=== PATIENT | female | born 1950 | race Caucasian/White ===

== ENCOUNTER → 2019-09-05 11:26 | Outpatient (CLI) | payer MEDICARE, SELFPAY ==
--- NOTE | ~2019-09-05 | MM_ITS ---
EXAMINATION: MM screening marla BI w mike HISTORY: Screening mammogram TECHNIQUE: Craniocaudal and mediolateral oblique 3-D tomosynthesis images were obtained and synthetic 2-D images were generated. CAD analysis was submitted and interpreted. COMPARISON: 06/22/2016, 07/19/2017, 08/08/2018 bilateral digital screening mammogram examinations BREAST PARENCHYMAL COMPOSITION: There are scattered areas of fibroglandular density. FINDINGS: Stable bilateral intramammary lymph nodes. Occasional benign calcifications. There is no ev idence of suspicious mass, calcification, or architectural distortion to suggest malignancy in either breast. There has been no suspicious interval change. IMPRESSION: 1. No mammographic evidence of malignancy. 2. Recommend routine screening mammography in one year. BI-RADS Category 2: Benign finding(s). Reviewed, dictated and finalized at location A.
== END ==
PROVIDERS: PCP Family Medicine; Visit Provider Family Medicine
DX: Z12.31 Encounter for screening mammogram for malignant neoplasm of breast (principal)
CPT/HCPCS: 77063; 77067

== ENCOUNTER 2020-03-01 00:41 | Outpatient (CLI) | payer MEDICARE, SELFPAY ==
[2020-03-01 18:12] LABS: SARS-CoV-2 RNA PCR Negative
== END 2020-03-01 00:42 | disposition home or self-care (01) ==
LOC: ANHCOVIDDT 00:41
PROVIDERS: PCP Family Medicine; Visit Provider Internal Medicine Gastroenterology
DX: Z01.812 Encounter for preprocedural laboratory examination (principal); Z20.828 Contact with and (suspected) exposure to other viral communicable diseases
CPT/HCPCS: 87635; C9803; U0003

== ENCOUNTER 2020-03-03 02:54 | Day surgery (SDC) | payer MEDICARE, SELFPAY ==
[2020-02-26 14:02] VITALS: BMI 26.9
--- NOTE | 2020-03-03 08:23 | WPDANESEPPF ---
Anes - Initial Pre Proc Eval Procedure: Operation Date: 03/03/20 12:00 Proposed Procedures p Screening Colonoscopy - Tree Castillo DO Date/Time: 03/03/20 08:23 Surgeon: Tree Castillo DO Pre Op Diagnosis: Neoplasm Screening Patient Data Age: 69 Gender: F Height: 1.7 m Weight: 78 kg Allergies Allergy/AdvReac Type Severity Reaction Status Date / Time aspirin Allergy Unknown Hives Verified 03/03/20 11:06 orphenadrine Allergy Unknown Rash Uncoded 03/03/20 11:06 Home Medications Medication Instructions Recorded Confirmed Type L. gasseri-B. bifidum-B longum 1.5 1 cap PO DAILY 04/21/19 03/03/20 History billion cell capsule acetaminophen 300 mg-codeine 30 mg 1 tablet PO Q12H PRN tablet 04/21/19 03/03/20 History tablet alendronate 70 mg tablet 70 mg PO WEEKLY #12 tablet 04/21/19 03/03/20 Rx glucosamine sulf dipotassium Cl 1 tablet PO DAILY 04/21/19 03/03/20 History 750 mg-chondroitin sulf 600 mg tablet meloxicam 15 mg tablet 15 mg PO DAILY 04/21/19 03/03/20 History multivitamin 1 tablet PO DAILY 04/21/19 03/03/20 History polyethylene glycol 3350 17 17 gm PO DAILY PRN 04/21/19 03/03/20 History gram/dose oral powder tizanidine 4 mg capsule 4 mg PO TID PRN 04/21/19 03/03/20 History escitalopram oxalate 10 mg tablet See Rx Instructions .ROUTE 01/29/20 03/03/20 Rx .COMPLEX #90 tablet metoprolol succinate 50 mg See Rx Instructions .ROUTE 01/29/20 03/03/20 Rx tablet,extended release 24 hr .COMPLEX #90 tablet amoxicillin 500 mg PO Q12H 02/26/20 03/03/20 History Patient hx anesthesia problems: none Family hx anesthesia problems: none PMFSH Social History Social History (Updated 01/27/20 @ 09:03 by Tanisha Paulino) Smoking status: Never smoker Second hand tobacco smoke exposure: No Alcohol intake: never Drinks per week: 1 Substance use: never Substance use type: does not use Living arrangements: alone Gender identity (if verbalized by the patient): Female Spiritual care concerns: No Anes - Eval Final PreProcedure Day of Procedure 03/03/20 08:23 Patient weight: overweight Heart: regular rate and rhythm Lungs: clear to auscultation and normal air movement Airway: Mallampati scale class II Neurological: alert and oriented Last oral intake: >/= 8 hours ASA classification: II Emergent: no Anesthetic plan: proceed Anesthesia type and monitoring: general GIVS and standard monitoring Informed Consent: The patient's anesthetic plan and its attendant risks and benefits were discussed with the patient/family/POA. Questions were solicited and answers provided to the satisfaction of the patient/family/POA.
[2020-03-03 11:06] VITALS: BP 135/77; PULSE 71; RESP 18; TEMP 36.9; O2SAT 97; BMI 26.9
[2020-03-03] MEDS: LACTATED RINGERS 1,000 ML 150 ML IV CONT (11:21)
--- NOTE | 2020-03-03 12:47 | PM.IMHP ---
H&P: [facility] History of Present Illness Date/Time: 03/03/20 12:47 Chief complaint: Neoplasm Screening Narrative: Reason for visit colonoscopy. This very pleasant lady's being evaluated at the request primary physician. Impression: Your very pleasantly that is here for colonoscopy. She is here for screening and surveillance. She has a history colon polyps. Chronic idiopathic constipation. HTN. HLD. DM. Anxiety /Depression. Osteoporosis. Recommendation: Colonoscopy. History: This very pleasant lady's being evaluated for screening and surveillance colonoscopy. She has a history of colon polyps. She does have history chronic idiopathic constipation and has been on Linzess and MiraLax. Now she no longer takes the Linzess as the MiraLax seems to be functioning by itself. She denies any hematochezia, melena or acholic stools. She is here for follow-up colonoscopy. Physical examination: General: very pleasant patient in no acute distress. HEENT: Head was normocephalic sclerae is clear mouth without masses neck was supple. Heart: Rate rhythm regular without S3 or S4. Lungs: CTA. Abdomen: Soft with no guarding or rigidity. Bowel sounds were active. Neurologic: Cranial nerves 2 through 12 intact. No focal defects. No clonus. Musculoskeletal system: Revealed no joint tenderness or swelling no muscle atrophy. Extremities: Reveal no significant edema. Skin: Warm and dry with normal turgor. Mental status: intact. Patient is alert and oriented. Review of Systems Review of Systems: All systems reviewed & are unremarkable except as noted in HPI and below [facility] Social History Social History (Updated 01/27/20 @ 09:03 by Tanisha Paulino) Smoking status: Never smoker Second hand tobacco smoke exposure: No Alcohol intake: never Drinks per week: 1 Substance use: never Substance use type: does not use Living arrangements: alone Gender identity (if verbalized by the patient): Female Spiritual care concerns: No Meds Home Medications and Allergies Home Medications Medication Instructions Recorded Confirmed Type L. gasseri-B. bifidum-B longum 1.5 1 cap PO DAILY 04/21/19 03/03/20 History billion cell capsule acetaminophen 300 mg-codeine 30 mg 1 tablet PO Q12H PRN tablet 04/21/19 03/03/20 History tablet alendronate 70 mg tablet 70 mg PO WEEKLY #12 tablet 04/21/19 03/03/20 Rx glucosamine sulf dipotassium Cl 1 tablet PO DAILY 04/21/19 03/03/20 History 750 mg-chondroitin sulf 600 mg tablet meloxicam 15 mg tablet 15 mg PO DAILY 04/21/19 03/03/20 History multivitamin 1 tablet PO DAILY 04/21/19 03/03/20 History polyethylene glycol 3350 17 17 gm PO DAILY PRN 04/21/19 03/03/20 History gram/dose oral powder tizanidine 4 mg capsule 4 mg PO TID PRN 04/21/19 03/03/20 History escitalopram oxalate 10 mg tablet See Rx Instructions .ROUTE 01/29/20 03/03/20 Rx .COMPLEX #90 tablet metoprolol succinate 50 mg See Rx Instructions .ROUTE 01/29/20 03/03/20 Rx tablet,extended release 24 hr .COMPLEX #90 tablet amoxicillin 500 mg PO Q12H 02/26/20 03/03/20 History Allergies Allergy/AdvReac Type Severity Reaction Status Date / Time aspirin Allergy Unknown Hives Verified 03/03/20 11:06 orphenadrine Allergy Unknown Rash Uncoded 03/03/20 11:06 Vital Signs Vital Signs - 24 hr 03/03/20 11:06 Temperature 36.9 C Pulse Rate 71 Respiratory Rate 18 Blood Pressure 135/77 Pulse Oximetry 97
[2020-03-03 13:19] VITALS: BP 100/49; PULSE 62; RESP 12; O2SAT 99
[2020-03-03 13:29] VITALS: BP 112/75; PULSE 74; RESP 14; O2SAT 100
[2020-03-03 13:39] VITALS: BP 128/78; PULSE 67; RESP 13; O2SAT 100
== END 2020-03-03 13:58 | disposition home or self-care (01) ==
PROVIDERS: PCP Family Medicine; Visit Provider Internal Medicine Gastroenterology
PROC: 0DJD8ZZ Inspection of Lower Intestinal Tract, Via Natural or Artificial Opening Endoscopic (ICD-10-PCS; CPT 45378; principal; 2020-03-03 12:00)
DX: Z12.11 Encounter for screening for malignant neoplasm of colon (principal); K63.5 Polyp of colon; K64.8 Other hemorrhoids; K59.00 Constipation, unspecified; I10 Essential (primary) hypertension; E78.5 Hyperlipidemia, unspecified; E11.9 Type 2 diabetes mellitus without complications; M81.0 Age-related osteoporosis without current pathological fracture; F41.8 Other specified anxiety disorders
CPT/HCPCS: 45385; J2704; J7120

== ENCOUNTER → 2020-09-21 13:30 | Outpatient (CLI) | payer MEDICARE, SELFPAY ==
--- NOTE | ~2020-09-21 | MM_ITS ---
EXAMINATION: MM screening marla BI w mike HISTORY: Screening mammogram TECHNIQUE: Craniocaudal and mediolateral oblique 3-D tomosynthesis images were obtained and synthetic 2-D images were generated. CAD analysis was submitted and interpreted. COMPARISON: 09/05/2019, 08/08/2018, 07/19/2017 bilateral digital screening mammogram examinations BREAST PARENCHYMAL COMPOSITION: There are scattered areas of fibroglandular density. FINDINGS: Occasional bilateral benign calcifications. Benign stable circumscribed opacities in the po sterior mid to upper left breast, most consistent with benign intramammary lymph nodes. There is no evidence of suspicious mass, calcification, or architectural distortion to suggest malig alysa in either breast. There has been no suspicious interval change. IMPRESSION: 1. No mammographic evidence of malignancy. 2. Recommend routine screening mammography in one year. BI-RADS Category 2: Benign finding(s). Reviewed, dictated and finalized at location A.
--- NOTE | ~2020-09-21 | DEXA_ITS ---
Bone Density Report Name: Senia Cano I Age: 70 Sex: Female Ethnicity: White Date of : 1950 Indication: monitoring treatment; height loss; postmenopausal Referring Provider: Sim Weiss Study: Bone densitometry was performed. Exam Date: September 21, 2020 Accession number: [id number] Bone Density: Region BMD T-score Z-score Classification AP Spine (L1, L4) 0.940 -0.9 1.2 Normal Femoral Neck (Left) 0.757 -0.8 0.9 Normal Total Hip (Left) 0.936 0.0 1.4 Normal Femoral Neck (Right) 0.735 -1.0 0.7 Normal Total Hip (Right) 0.886 -0.5 1.0 Normal Total Hip Mean 0.911 -0.3 1.2 Normal World Health Organization criteria for BMD impression classify patients as: Normal (T-score at or above -1.0), Osteopenia (T-score between -1.0 and -2.5), or Osteoporosis (T-score at or below -2.5). 10-year Fracture Risk: FRAX not reported because: All T-scores for Spine Total, Hip Total, Femoral Neck at or above -1.0 Treated for osteoporosis Previous Exams: Region Exam Age BMD T-score BMD Change BMD Change Date g/cm2 vs Baseline vs Previous AP Spine(L1, L4) 09/21/2020 70 0.940 -0.9 -0.076* -0.076* 05/10/2010 59 1.016 -0.2 Total Hip(Left) 09/21/2020 70 0.936 0.0 0.019 0.019 05/10/2010 59 0.917 -0.2 Total Hip(Right) 09/21/2020 70 0.886 -0.5 -0.040* -0.040* 05/10/2010 59 0.926 -0.1 *Denotes significance at 95% confidence level, LSC for AP Spine = 0.022 g/cm2, LSC for Total Hip = 0.027 g/cm2 Clinical Information Provided by Patient: Is being treated for osteoporosis Has used the following medications: Fosamax (i.e. alendronate) Patient maximum height was 67 Menopause Age: 57 Onset of menses at age 15 Number of children 2 Impression: The patient has normal bone mass. The BMD for the AP Spine(L1, L4) decreased, changing by -0.076 since the last DXA exam. The BMD for the Total Hip(Right) decreased, changing by -0.040 since the last DXA exam. Discussion: SIGNIFICANT BONE LOSS OBSERVED. Adherence to therapy (including calcium and vitamin D intake) should be assessed. If compliance is not a factor, review management and exclusion of secondary causes of bone loss. It is important to ask patients whether they are taking their medications and to encourage continued and appropriate compliance with their osteoporosis therapies to reduce fracture risk. It is also important to review their risk factors and enc
== END ==
PROVIDERS: PCP Family Medicine; Visit Provider Family Medicine
DX: Z12.31 Encounter for screening mammogram for malignant neoplasm of breast (principal); Z78.0 Asymptomatic menopausal state
CPT/HCPCS: 77063; 77067; 77080

== ENCOUNTER 2020-11-03 08:31 | Outpatient (CLI) | payer MEDICARE, SELFPAY ==
--- NOTE | 2020-11-03 11:00 | NEURO_ITS ---
Impression: # Complains of numbness of lower extremities below the knees. # Normal motor and sensory nerve conduction study with right peroneal response amplitude drop. # Needle/EMG exam with mild decreased motor unit potentials in right tibialis muscle. # Possibility of higher involvement needs to be ruled out. Nerve Conduction Studies Anti Sensory Summary Table Stim Site NR Peak (ms) P-T Amp (?V) Site1 Site2 Delta-P (ms) Dist (cm) Jose (m/s) Left Sup Fibular Anti Sensory (Ant Lat Mall) 14 cm 2.9 16.0 14 cm Ant Lat Mall 2.9 16.0 55 Right Sup Fibular Anti Sensory (Ant Lat Mall) 14 cm 3.3 3.9 14 cm Ant Lat Mall 3.3 16.0 48 Left Sural Anti Sensory (Lat Mall) Calf 3.1 19.2 Calf Lat Mall 3.1 16.0 52 Right Sural Anti Sensory (Lat Mall) Calf 3.4 14.5 Calf Lat Mall 3.4 16.0 47 Motor Summary Table Stim Site NR Onset (ms) O-P Amp (mV) Site1 Site2 Delta-0 (ms) Dist (cm) Jose (m/s) Left Peroneal Motor (Vastus Med) Ankle 4.1 2.4 Popit Ankle 9.1 42.0 46 Popit 13.2 2.1 Right Peroneal Motor (Vastus Med) Ankle 4.0 0.6 Popit Ankle 8.5 40.0 47 Popit 12.5 0.4 Left Tibial Motor (Abd Mcnair Brev) Ankle 4.5 4.7 Knee Ankle 10.1 43.0 43 Knee 14.6 1.5 Right Tibial Motor (Abd Mcnair Brev) Ankle 4.5 1.4 Knee Ankle 10.6 43.0 41 Knee 15.1 1.0 F Wave Studies NR F-Lat (ms) L-R F-Lat (ms) Left Peroneal (Mrkrs) (EDB) 52.27 0.69 Right Peroneal (Mrkrs) (EDB) 51.58 0.69 Left Tibial (Mrkrs) (Abd Hallucis) 51.53 1.40 Right Tibial (Mrkrs) (Abd Hallucis) 52.94 1.40 EMG Side Muscle Nerve Root Ins Act Fibs Amp Dur Recrt Comment Right AntTibialis Dp Br Fibular L4-5 Nml Nml Nml >12ms Reduced Right Gastroc Tibial S1-2 Nml Nml Nml Nml Nml Right Fibularis Long Sup Br Fibular L5-S1 Nml Nml Nml Nml Nml Right Flex Dig Long Tibial L5-S2 Nml Nml Nml Nml Nml Right Ext Dig Brev Dp Br Fibular L5, S1 Nml Nml Nml Nml Nml Left AntTibialis Dp Br Fibular L4-5 Nml Nml Nml Nml Nml Left Gastroc Tibial S1-2 Nml Nml Nml Nml Nml Left Fibularis Long Sup Br Fibular L5-S1 Nml Nml Nml Nml Nml Left Flex Dig Long Tibial L5-S2 Nml Nml Nml Nml Nml Left Ext Dig Brev Dp Br Fibular L5, S1 Nml Nml Nml Nml Nml Right QuadratusFem QuadFemoris L4-5, S1 Nml Nml Nml Nml Nml Left QuadratusFem QuadFemoris L4-5, S1 Nml Nml Nml Nml Nml MTDD
== END 2020-11-03 08:32 | disposition home or self-care (01) ==
LOC: ANHNEURO 08:32
PROVIDERS: PCP Family Medicine; Visit Provider Family Medicine
DX: R20.0 Anesthesia of skin (principal)
CPT/HCPCS: 95886; 95910

== ENCOUNTER → 2021-01-24 07:46 | Outpatient (CLI) | payer MEDICARE, SELFPAY ==
--- NOTE | ~2021-01-24 | MR_ITS ---
EXAMINATION: MR cervical spine wo/w con DATE: 01/24/2021 09:22 INDICATION: Bilateral arm and leg numbness and tingling. TECHNIQUE: Magnetic resonance imaging (MRI) of the cervical spine was performed without and with 15 m L MultiHance intravenous contrast. Sequences included sagittal and axial T2-weighted FSE, sagittal ST IR FSE, and sagittal and axial T1-weighted FSE. Postcontrast sequences included sagittal and axial T1 -weighted FS FSE. COMPARISON: None FINDINGS: There is 2 mm retrolisthesis of C4 on C5. Vertebral body heights are normal. There is sever araceli decreased disc height from C4-C5 through C6-C7. The spinal cord signal intensity is normal. The f ollowing disc levels are specifically discussed: C2-C3: The disc does not extend beyond the endplate margin. There is no uncovertebral joint osteoarth ritis. There is mild bilateral facet joint osteoarthritis. There is no neural foraminal stenosis. The re is no central canal stenosis. C3-C4: The disc is bulging. There is mild bilateral uncovertebral joint osteoarthritis. There is mode rate bilateral facet joint osteoarthritis. There is mild bilateral neural foraminal stenosis. There i s mild central canal stenosis. C4-C5: The disc is bulging. There is severe bilateral uncovertebral joint osteoarthritis. There is mi ld bilateral facet joint osteoarthritis. There is moderate bilateral neural foraminal stenosis. There is mild central canal stenosis. C5-C6: The disc is bulging. There is severe bilateral uncovertebral joint osteoarthritis. There is mi ld bilateral facet joint osteoarthritis. There is moderate right and mild left neural foraminal steno sis. There is mild central canal stenosis. C6-C7: The disc is bulging. There is severe bilateral uncovertebral joint osteoarthritis. There is mi ld bilateral facet joint osteoarthritis. There is mild bilateral neural foraminal stenosis. There is mild central canal stenosis. C7-T1: There is a central protrusion. There is no uncovertebral joint osteoarthritis. There is severe bilateral facet joint osteoarthritis. There is mild right neural foraminal stenosis. There is no reza tral canal stenosis. IMPRESSION: 1. Severe cervical spondylosis. Reviewed, dictated and finalized at location A.
--- NOTE | ~2021-01-24 | MR_ITS ---
EXAMINATION: MR brain/brain stem wo/w con EXAM DATE: 01/24/2021 09:35 INDICATION: Headaches, mainly left-sided numbness. Bilateral arm and leg tingling. Unsteady gait. TECHNIQUE: Magnetic resonance imaging (MRI) of the brain/brain stem obtained without contrast. Sagit marlee T1, axial diffusion, gradient echo (T2*), T1, T2, FLAIR sequences obtained. Patient was then inj ected with 15 cc intravenous Multihance contrast. Axial and coronal postcontrast T1 weighted sequence s obtained. There is no prior study for comparison. FINDINGS: There are no areas of restricted diffusion to suggest acute infarction. There is no acute hemorrhage seen on the T2*, a hemosiderin sensitive sequence. No intraparenchymal brain mass lesion. There is minimal periventricular and subcortical T2/FLAIR signal hyperintensity, nonspecific but pro bably related to small vessel ischemic disease (microangiopathy). There is mild prominence of the s ulci and ventricles related to cerebral atrophy. There are no extra-axial collections. Flow voids are seen in the cerebral arteries on the T2-weighted sequences consistent with their expected patency . The orbits are unremarkable. Soft tissue is unremarkable. IMPRESSION: 1. No acute intracranial findings. 2. Chronic age related findings. Reviewed, dictated and finalized at location B.
[2021-01-24 08:31] LABS: Estimated Glomerular Filt Rate > 60
== END ==
PROVIDERS: PCP Family Medicine; Visit Provider Psychiatry & Neurology Neurology
DX: R20.0 Anesthesia of skin (principal); M47.812 Spondylosis without myelopathy or radiculopathy, cervical region
CPT/HCPCS: 70553; 72156; A9577

== ENCOUNTER 2021-02-18 13:50 | Outpatient (CLI) | payer MEDICARE, SELFPAY ==
--- NOTE | ~2021-02-18 | US_ITS ---
EXAMINATION: US carotid duplex BI EXAM DATE: 02/18/2021 14:19 INDICATION: Weakness. TECHNIQUE: Grayscale, color and pulsed Doppler images of the cervical carotid arteries were obtained . The degree of vessel stenosis is placed in one of the following categories: normal, <50% stenosis, 50-69% stenosis, >=70% stenosis but less than near-occlusion, near-occlusion, or occlusion. Note that percent stenosis relative to normal distal artery lumen diameter is indirectly measured from velocit y measurements as described by Loc, et al. Radiology 2003; 229:340-346. There is no prior study fo r comparison. FINDINGS: RIGHT SIDE: Right common carotid artery peak systolic velocity (PSV in cm/s): 88 Right bulb/internal carotid artery peak systolic velocity (PSV in cm/s): 85 Right internal carotid artery end diastolic velocity (EDV in cm/s): 28 Right ICA/CCA peak systolic ratio: 1.0 Right external carotid artery peak systolic velocity (PSV in cm/s): 85 Right vertebral artery antegrade flow: yes There is minimal carotid bulb plaque. Velocity and Doppler waveforms in the common and internal carotid arteries is normal. LEFT SIDE: Left common carotid artery peak systolic velocity (PSV in cm/s): 96 Left bulb/internal carotid artery peak systolic velocity (PSV in cm/s): 85 Left internal carotid artery end diastolic velocity (EDV in cm/s): 26 Left ICA/CCA peak systolic ratio: 0.9 Left external carotid artery peak systolic velocity (PSV in cm/s): 89 Left vertebral artery antegrade flow: yes There is minimal carotid bulb plaque. Velocity and Doppler waveforms in the common and internal carotid arteries is normal. IMPRESSION: 1. Less than 50 percent stenosis in the right internal carotid artery. 2. Less than 50 percent stenosis in the left internal carotid artery. > Reviewed, dictated and finalized at location B.
== END 2021-02-18 13:51 | disposition home or self-care (01) ==
PROVIDERS: PCP Family Medicine; Visit Provider Family Medicine
DX: I65.23 Occlusion and stenosis of bilateral carotid arteries (principal); R53.1 Weakness
CPT/HCPCS: 93880

== ENCOUNTER → 2021-03-24 13:54 | Outpatient (CLI) | payer MEDICARE, SELFPAY ==
--- NOTE | ~2021-03-24 | MR_ITS ---
EXAMINATION: MR lumbar spine wo con DATE: 03/24/2021 14:49 INDICATION: Radiculopathy, lumbar region. TECHNIQUE: Magnetic resonance imaging (MRI) of the lumbar spine was performed without intravenous con trast. Sequences included sagittal T2-weighted FSE, sagittal T2-weighted FS FSE, sagittal T1-weighted FSE, and axial T2-weighted FSE. COMPARISON: Lumbar spine MRI 05/04/2017 FINDINGS: There is 15 degrees levoscoliosis of lumbar spine. There is 4 mm retrolisthesis of L3 on L4 . Vertebral body heights are normal. There is moderately decreased disc height at T10-T11, severely d ecreased disc height at T11-T12, mildly decreased disc height at L1-L2, and severely decreased disc h eight at L2-L3 and L3-L4. The distal spinal cord signal intensity is normal. The conus medullaris is at L1. There are peripelvic cysts in left kidney. The following disc levels are specifically discusse d: L1-L2: The disc is bulging. There is no facet joint osteoarthritis. There is mild bilateral neural fo raminal stenosis. There is mild central canal stenosis. L2-L3: The disc is bulging and has an annular fissure. There is mild bilateral facet joint osteoarthr itis. There is mild bilateral neural foraminal stenosis. There is mild central canal stenosis. L3-L4: The disc is bulging and has an annular fissure. There is mild right and moderate left facet carla int osteoarthritis. There is moderate bilateral neural foraminal stenosis. There is mild central chung l stenosis. There is severe stenosis of left lateral recess. L4-L5: The disc is bulging and has an annular fissure. There is mild left facet joint osteoarthritis. There is mild right and moderate left neural foraminal stenosis. There is mild central canal stenosi s. L5-S1: The disc does not extend beyond the endplate margin. There is severe bilateral facet joint ost eoarthritis. There is mild left neural foraminal stenosis. There is no central canal stenosis. IMPRESSION: 1. Severe lumbar spondylosis, stable from 05/04/2017. 2. Lumbar levoscoliosis. Reviewed, dictated and finalized at location A.
== END ==
PROVIDERS: PCP Family Medicine; Visit Provider Nurse Practitioner Adult Health
DX: M47.25 Other spondylosis with radiculopathy, thoracolumbar region (principal); M48.05 Spinal stenosis, thoracolumbar region; M47.27 Other spondylosis with radiculopathy, lumbosacral region; M48.07 Spinal stenosis, lumbosacral region; M41.9 Scoliosis, unspecified
CPT/HCPCS: 72148

== ENCOUNTER → 2021-09-22 14:12 | Outpatient (CLI) | payer MEDICARE, SELFPAY ==
--- NOTE | ~2021-09-22 | MM_ITS ---
EXAMINATION: MM screening marla BI w mike HISTORY: Screening TECHNIQUE: Craniocaudal and mediolateral oblique 3-D tomosynthesis images were obtained and synthetic 2-D images were generated. CAD analysis was submitted and interpreted. COMPARISON: Comparison to multiple prior studies sequentially, with oldest reviewed study dated 06/10. BREAST PARENCHYMAL COMPOSITION: Breast composed of scattered areas of fibroglandular density FINDINGS: There is no evidence of suspicious mass, calcification, or architectural distortion to sugg est malignancy in either breast. There has been no suspicious interval change. IMPRESSION: 1. No mammographic evidence of malignancy. 2. Recommend routine screening mammography in one year. BI-RADS Category 1: Negative Reviewed, dictated and finalized at location A.
== END ==
PROVIDERS: PCP Family Medicine; Visit Provider Family Medicine
DX: Z12.31 Encounter for screening mammogram for malignant neoplasm of breast (principal)
CPT/HCPCS: 77063; 77067

== ENCOUNTER → 2022-10-17 14:08 | Outpatient (CLI) | payer OTHER, SELFPAY ==
--- NOTE | ~2022-10-17 | MM_ITS ---
EXAMINATION: MM screening marla BI w mike HISTORY: Screening mammogram, family history of breast cancer in her sister. TECHNIQUE: Craniocaudal and mediolateral oblique 3-D tomosynthesis images were obtained and synthetic 2-D images were generated. CAD analysis was submitted and interpreted. COMPARISON: 09/22/2021, 09/21/2020, 09/05/2019 BREAST PARENCHYMAL COMPOSITION: The breasts are almost entirely fatty. FINDINGS: No suspicious mass, calcification, or architectural distortion are identified in either dann ast to suggest malignancy. There has been no suspicious interval change. IMPRESSION: 1. No mammographic evidence of malignancy. 2. Recommend routine screening mammography in one year. BI-RADS Category 1: Negative Reviewed, dictated and finalized at location A.
== END ==
PROVIDERS: PCP Family Medicine; Visit Provider Family Medicine
DX: Z12.31 Encounter for screening mammogram for malignant neoplasm of breast (principal)
CPT/HCPCS: 77063; 77067

== ENCOUNTER → 2022-11-02 11:00 | Outpatient (CLI) | payer MEDICARE, SELFPAY ==
--- NOTE | ~2022-11-02 | DEXA_ITS ---
Bone Density Report Name: HENRIETTA PRUITT I Age: 72 Sex: Female Ethnicity: White Date of : 1950 Indication: monitoring treatment; height loss; postmenopausal Referring Provider: Sim Weiss Study: Bone densitometry was performed. Exam Date: November 02, 2022 Accession number: [id number] Bone Density: Region BMD T-score Z-score Classification AP Spine (L1, L4) 0.963 -0.7 1.5 Normal Femoral Neck (Left) 0.736 -1.0 0.9 Normal Total Hip (Left) 0.908 -0.3 1.3 Normal Femoral Neck (Right) 0.762 -0.8 1.1 Normal Total Hip (Right) 0.918 -0.2 1.4 Normal Total Hip Mean 0.913 -0.3 1.4 Normal World Health Organization criteria for BMD impression classify patients as: Normal (T-score at or above -1.0), Osteopenia (T-score between -1.0 and -2.5), or Osteoporosis (T-score at or below -2.5). 10-year Fracture Risk: FRAX not reported because: All T-scores for Spine Total, Hip Total, Femoral Neck at or above -1.0 Treated for osteoporosis Previous Exams: Region Exam Age BMD T-score BMD Change BMD Change Date g/cm2 vs Baseline vs Previous AP Spine(L1, L4) 11/02/2022 72 0.963 -0.7 -0.053* 0.023* 09/21/2020 70 0.940 -0.9 -0.076* -0.076* 05/10/2010 59 1.016 -0.2 Total Hip(Left) 11/02/2022 72 0.908 -0.3 -0.009 -0.028* 09/21/2020 70 0.936 0.0 0.019 0.019 05/10/2010 59 0.917 -0.2 Total Hip(Right) 11/02/2022 72 0.918 -0.2 -0.008 0.032* 09/21/2020 70 0.886 -0.5 -0.040* -0.040* 05/10/2010 59 0.926 -0.1 *Denotes significance at 95% confidence level, LSC for AP Spine = 0.022 g/cm2, LSC for Total Hip = 0.027 g/cm2 Clinical Information Provided by Patient: Is being treated for osteoporosis Has used the following medications: Fosamax (i.e. alendronate), Vitamin D, Calcium Patient maximum height was 67 Menopause Age: 57 Drinks caffeinated beverages Onset of menses at age 15 Number of children 2 Impression: The patient has normal bone mass. The BMD for the Total Hip(Left) decreased, changing by -0.028 since the last DXA exam. Discussion: SIGNIFICANT BONE LOSS OBSERVED. Adherence to therapy (including calcium and vitamin D intake) should be assessed. If compliance is not a factor, review management and exclusion of secondary causes of bone loss. It is important to ask patients whether they are taking their medications and to encou
== END ==
PROVIDERS: PCP Family Medicine; Visit Provider Family Medicine
DX: Z78.0 Asymptomatic menopausal state (principal)
CPT/HCPCS: 77080

== ENCOUNTER 2023-04-02 09:11 | Outpatient (CLI) | payer MEDICARE, SELFPAY ==
--- NOTE | ~2023-04-02 | US_ITS ---
Abdominal Sonogram: Real-time sonographic imaging of the abdomen was performed. Clinical History: Abdominal pain Findings: The liver appears normal with no evidence of mass lesion or bile duct dilatation. Main por marlee vein demonstrates normal direction of flow. The spleen is normal in size without evidence of foca l lesion. The gallbladder is partially distended, and appears normal with no evidence of gallstone o r wall thickening. The common bile duct measures 3 mm. The visualized pancreas, aorta, and IVC are u nremarkable. The right kidney measures 11.3 cm in length and the left kidney measures 10.8 cm. Ther e is no hydronephrosis or renal calculus. Impression: Unremarkable abdominal ultrasound. Reviewed, dictated and finalized at location M. RGLASS AUTO BODY REPAIRER Impression: Unremarkable abdominal ultrasound.
== END 2023-04-02 09:12 | disposition home or self-care (01) ==
PROVIDERS: PCP Family Medicine; Visit Provider Family Medicine
DX: R10.9 Unspecified abdominal pain (principal)
CPT/HCPCS: 76700

== ENCOUNTER → 2023-04-18 07:45 | Outpatient (CLI) | payer MEDICARE, SELFPAY ==
--- NOTE | ~2023-04-18 | MR_ITS ---
EXAMINATION: MR lumbar spine wo con DATE: 04/18/2023 08:32 INDICATION: Lumbar radiculopathy with chronic low back pain and left hip and leg tingling TECHNIQUE: Magnetic resonance imaging (MRI) of the lumbar spine was performed without intravenous con trast. Sequences included sagittal T2-weighted FSE, sagittal fluid sensitive FSE STIR, sagittal T1-we ighted FSE, and axial T2-weighted FSE. COMPARISON: 03/24/2021 FINDINGS: Unchanged 15 degree lumbar levoscoliosis. No interval change in 4 mm retrolisthesis L3 on L4 and 2 mm retrolisthesis L2 on L3 and L4 on L5. There is also 5 mm right lateral listhesis of T12 on L1. Verte bral body heights are normal. Moderate left-sided predominant disc height loss at T11-T12, mild to mo derate disc height loss at L1-L2 and severe right-sided predominant disc height loss at L2-L3 and L3- L4. Disc desiccation without significant disc height loss at T12-L1 and L4-L5. There are associated f ibrofatty and fibrovascular degenerative endplate changes at L1-L2 through L3-L4. The conus medullari s terminates at L1-L2. There is normal signal in the caudal spinal cord. Consistent with parapelvic c ysts in both kidneys. Paravertebral soft tissues are unremarkable. The following disc levels are spec ifically discussed: T11-T12: Disc is bulging with annular fissure and superimposed left subarticular zone disc extrusion with disc material extending couple millimeters cephalad to the level of the inferior endplate of T11 . There is moderate bilateral facet osteoarthritis. There is mild bilateral neural foraminal stenosis . There is mild central canal stenosis and mild narrowing of the left lateral recess. T12-L1: Disc is mildly bulging. There is mild bilateral facet joint osteoarthritis. There is minimal right neural foraminal stenosis. There is mild central canal stenosis. L1-L2: Disc is bulging with annular fissure. There is mild bilateral facet joint osteoarthritis. Ther e is small amount of fluid between the slightly articular surfaces at the bilateral facet j oints suggesting the potential for up to 2 mm of anterolisthesis. There is mild bilateral neural fora hung stenosis. There is mild central canal stenosis along with mild narrowing of the right lateral r ecess. L2-L3: Disc is bulging with annular fissure. There is mild bilateral facet joint osteoarthritis. Ther e is mild bilateral neural foraminal stenosis. There is mild central canal stenosis with mild narrowi ng of the right lateral recess. L3-L4: Disc is bulging with annular fissure and broad-based disc extrusion extending from foraminal z one to foraminal zone with disc material extending up to 6 mm caudal to the level of the superior end plate of L4. There is mild right and moderate left facet joint osteoarthritis. There is moderate bila teral neural foraminal stenosis. There is mild to moderate central canal stenosis. There is narrowing of the lateral recesses, severe on the left and mild on the right. L4-L5: Disc is bulging with annular fissure. There is mild bilateral facet joint osteoarthritis. Ther e is mild to moderate right and moderate left neural foraminal stenosis. There is mild central canal stenosis and mild during the left lateral recess. L5-S1: The disc does not extend beyond the endplate margin. There is severe bilateral facet joint ost eoarthritis. There is mild bilateral neural foraminal stenosis. There is no central canal stenosis. IMPRESSION: 1. Unchanged 15 degrees lumbar levoscoliosis with slight progression of severe spondylosis. Reviewed, dictated and finalized at location A. CULTURAL RESEARCH TECHNICIAN
== END ==
PROVIDERS: PCP Family Medicine; Visit Provider Nurse Practitioner Family
DX: M47.26 Other spondylosis with radiculopathy, lumbar region (principal)
CPT/HCPCS: 72148

== ENCOUNTER 2023-12-17 14:06 | Outpatient (CLI) | payer MEDICARE, SELFPAY ==
--- NOTE | ~2023-12-17 | MM_ITS ---
EXAMINATION: MM screening marla BI w mike HISTORY: Screening TECHNIQUE: Craniocaudal and mediolateral oblique 3-D tomosynthesis images were obtained and synthetic 2-D images were generated. CAD analysis was submitted and interpreted. COMPARISON: No prior mammogram is available for comparison at this institution. BREAST PARENCHYMAL COMPOSITION: Not dense: There are scattered areas of fibroglandular density. FINDINGS: There is no evidence of suspicious mass, calcification, or architectural distortion to sugg est malignancy in either breast. There has been no suspicious interval change. IMPRESSION: 1. No mammographic evidence of malignancy. 2. Recommend routine screening mammography in one year. BI-RADS Category 1: Negative Reviewed, dictated and finalized at location B.
== END 2023-12-17 14:07 ==
LOC: MICIMG 14:07
PROVIDERS: PCP Obstetrics & Gynecology; Visit Provider Family Medicine
DX: Z12.31 Encounter for screening mammogram for malignant neoplasm of breast (principal)
CPT/HCPCS: 77063; 77067

== ENCOUNTER 2024-12-18 10:20 | Outpatient (CLI) | payer MEDICARE, SELFPAY ==
--- NOTE | ~2024-12-18 | MM_ITS ---
EXAMINATION: MM screening marla BI w mike HISTORY: Screening TECHNIQUE: Craniocaudal and mediolateral oblique 3-D tomosynthesis images were obtained and synthetic 2-D images were generated. CAD analysis was submitted and interpreted. COMPARISON: Comparison to multiple prior studies sequentially, with oldest reviewed study dated 09/04. BREAST PARENCHYMAL COMPOSITION: There are scattered areas of fibroglandular density. FINDINGS: There is no evidence of suspicious mass, calcification, or architectural distortion to sug gest malignancy in either breast. IMPRESSION: 1. No mammographic evidence of malignancy. 2. Recommend routine screening mammography in one year. BI-RADS Category 1: Negative Reviewed, dictated and finalized at location B.
--- NOTE | ~2024-12-18 | DEXA_ITS ---
Bone Density Report Name: HENRIETTA PRUITT I Age: 74 Sex: Female Ethnicity: White Date of : 1950 Indication: monitoring treatment; height loss; Referring Provider: BLAINE PAREDES Study: Bone densitometry was performed. Exam Date: December 18, 2024 Accession number: [id number] Bone Density: Region BMD T-score Z-score Classification AP Spine(L1, L4) 0.998 -0.4 2.0 Normal Femoral Neck (Left) 0.731 -1.1 0.9 Osteopenia Total Hip (Left) 0.904 -0.3 1.4 Normal Femoral Neck (Right) 0.712 -1.2 0.8 Osteopenia Total Hip (Right) 0.892 -0.4 1.3 Normal Total Hip Mean 0.898 -0.4 1.4 Normal World Health Organization criteria for BMD impression classify patients as: Normal (T-score at or above -1.0), Osteopenia (T-score between -1.0 and -2.5), or Osteoporosis (T-score at or below -2.5). 10-year Fracture Risk: FRAX not reported because: Treated for osteoporosis Previous Exams: -- Region Exam Age BMD T-score BMD Change BMD Change Date g/cm2 vs Baseline vs Previous -- AP Spine (L1,L4) 12/18/2024 74 0.998 -0.4 -1.8% 3.6%* 11/02/2022 72 0.963 -0.7 -5.2%* 2.4%* 09/21/2020 70 0.940 -0.9 -7.5%* -7.5%* 05/10/2010 59 1.016 -0.2 Total Hip(Left) 12/18/2024 74 0.904 -0.3 -1.4% -0.4% 11/02/2022 72 0.908 -0.3 -1.0% -3.0%* 09/21/2020 70 0.936 0.0 2.1% 2.1% 05/10/2010 59 0.917 -0.2 Total Hip(Right) 12/18/2024 74 0.892 -0.4 -3.7%* -2.8% 11/02/2022 72 0.918 -0.2 -0.9% 3.6%* 09/21/2020 70 0.886 -0.5 -4.3%* -4.3%* 05/10/2010 59 0.926 -0.1 -- *Denotes significance at 95% confidence level, LSC for AP Spine = 0.022 g/cm2, LSC for Total Hip = 0.027 g/cm2 Clinical Information Provided by Patient: Is being treated for osteoporosis Has used the following medications: Fosamax (i.e. alendronate), Vitamin D, Calcium Patient maximum height was 67 Menopause Age: 57 Onset of menses at age 15 Number of children 2 Impression: The patient has low bone mass, based on the Right Femoral Neck T-score. No significant bone loss was observed. Discussion: PATIENT UNDER TREATMENT WITH NO SIGNIFICANT BMD LOSS SINCE LAST EXAM. In an untreated patient, BMD typically declines with age. A lack of decline or gain is usually a sign that treatment is efficacious and fracture risk is reduced. It is important to ask patients whether they are taking their medications and to encourage continued and appropriate compliance with their osteoporosis therapies to reduce fracture risk. It is also important to review their risk factors and encourage appropriate calcium and vitamin D intakes, exercise, fall prevention and other lifestyle measures. Follow-Up: Consider a repeat BMD and Vertebral Fracture Assessment (VFA) exam in 2 years or sooner if medically necessary, to reassess this patient's status. Reported by: BOBBY on 12/18/2024 11:28:00 AM. Reviewed, dictated and finalized at location A.
== END 2024-12-18 10:21 | disposition home or self-care (01) ==
PROVIDERS: PCP Family Medicine; Visit Provider Family Medicine
DX: Z12.31 Encounter for screening mammogram for malignant neoplasm of breast (principal); M85.88 Other specified disorders of bone density and structure, other site; Z78.0 Asymptomatic menopausal state
CPT/HCPCS: 77063; 77067; 77080

== ENCOUNTER 2025-03-19 15:51 | Emergency (ER) | payer MEDICARE, SELFPAY ==
--- OUTSIDE RECORDS SUMMARY | 2023-12-31 04:30 | XMS_ITS ---
Author Organization [facility] Address [address] [place], [place] [id number] Care Team Providers Care Aircraft Engine Installer Name Role Phone EVON EVANS Unavailable [phone] Sim Weiss Unavailable Unavailable Allergies Allergen (clinical drug ingredient) Drug/Non Drug Allergy documented on EMR Reaction Allergy Type Onset Date Status aspirin Aspirin Unknown Drug Allergy 06/12/2012 active orphenadrine Orphenadrine Unknown Drug Allergy 06/19/2022 active REASON FOR VISIT Patient presents for at-risk foot care . The patient has painful toenails and calluses that are causing difficulty with ambulation and shoegear. The onset is gradual. The patient has diabetes mellitus Medications Medication SIG (Take, Route, Frequency, Duration) Notes Start Date End Date Status acetaminophen 325 MG / oxycodone hydrochloride 5 MG Oral Tablet [Percocet] ORAL acetaminophen 325 MG / oxycodone hydrochloride 5 MG Oral Tablet [Percocet]Original Medicationacetaminophen 325 MG / oxycodone hydrochloride 5 MG Oral Tablet [Percocet] *Reorder from [facility] for eRx and Interac 8 Active terbinafine 250 MG Oral Tablet ORAL terbinafine 250 MG Oral TabletOriginal Medicationterbinafine 250 MG Oral Tablet *Reorder from [facility] for eRx and Interaction Alerts* 4 Active Vital Signs Weight 128 lbs 12/31/2023 Weight-kg 58.06 kg 12/31/2023 Encounters Encounter Location Date Provider Diagnosis [facility] [place] [address] [place] [id number] 12/31/2023 EVON KHANLORNE Tinea unguium B35.1 ; Type 2 diabetes mellitus with other circulatory complications E11.59 ; Pain in right toe(s) M79.674 ; Pain in left toe(s) M79.675 and Acquired keratosis [keratoderma] palmaris et plantaris L85.1 Assessments Encounter Date Diagnosis (ICD Code) Assessment Notes Treatment Notes Treatment Clinical Notes Section Notes 12/31/2023 Tinea unguium (ICD-10 - B35.1) Nails 1-5 Bilateral were debrided extensively with nail nippers and emery board, reducing length and girth to pink healthy tissue with any subungual debris and necrotic tissue removed 12/31/2023 Type 2 diabetes mellitus with other circulatory complications (ICD-10 - E11.59) 12/31/2023 Pain in right toe(s) (ICD-10 - M79.674) 12/31/2023 Pain in left toe(s) (ICD-10 - M79.675) 12/31/2023 Acquired keratosis [keratoderma] palmaris et plantaris (ICD-10 - L85.1) A total of 2 corns or calluses, as described in the note above, were cut and pared utilizing a #15 blade Plan Of Treatment Treatment Notes Assessment Notes Tinea unguium Nails 1-5 Bilateral were debrided extensively with nail nippers and emery board, reducing length and girth to pink healthy tissue with any subungual debris and necrotic tissue removed Acquired keratosis [keratode rma] palmaris et plantaris A total of 2 corns or calluses, as described in the note above, were cut and pared utilizing a #15 blade Next Appt Details Follow Up: 10 - 12 weeks, Re ason: At-Risk Foot care, sooner if problems develop. Provider Name:EVON EVANS, 09:00:00 AM, [address], [facility], [place], [place], [id number], Progress Notes * HENRIETTA PRUITT IDOB: [birth year] (74 yo F)Acc No.[id number]:12/31/2023 Patient: HENRIETTA HINKLE I Provider: Janie Evans DPM :1950 A ge:73 Y S ex:Female Date:12/31/2023 [address] [id number] Subjective: * Chief Complaints: * 1 . Patient presents for at-risk foot care . The patient has painful toenails and calluses that are causing difficulty with ambulation and shoegear. The onset is gradual. The patient has diabetes mellitus. * HPI: H PI: General care P joan presents to the office for diabetic foot care. Patient states that their nails are thickened, elongated and painful. Patient states that it is aggravated by shoe gear. Onset is gradual., Patient denies taking blood thinners., Date last seen by Dr. Weiss was 10/2023., Initials mca. * ROS: G eneral / Constitutional: Patient denies c hills, fever, weight loss. ? M usculoskeletal: Patient denies w eakness, broken foot bone. ? P eripheral Vascular: Patient denies u lceration of feet. S kin: Patient complains of f ungal nails, nail changes, calluses and corns. N eurologic: Patient denies b alance difficulty, confusion, difficulty speaking, dizziness. P atient complains of b urning/ tingling. * Medical History: M edical History Verified. * Family History: F ather: PRN - Father: :: Hypertension,,known absent , :: Diabetes,,known absent . M other: PRN - Mother: :: Cancer,,known absent . S ister: SIB - Sister: . * Social History: M igrated Social History: M igrated Social History: History of tobacco use : , Smoking Status : Never used tobacco , Alcohol intake :. * Medications: T aking acetaminophen 325 MG / oxycodone hydrochloride 5 MG Oral Tablet [Percocet] ORAL , Notes to Pharmacist: acetaminophen 325 MG / oxycodone hydrochloride 5 MG Oral Tablet [Percocet]Original Medicationacetaminophen 325 MG / oxycodone hydrochloride 5 MG Oral Tablet [Percocet] *Reorder from [facility] for eRx and Interac, Taking terbinafine 250 MG Oral Tablet ORAL , Notes to Pharmacist: terbinafine 250 MG Oral TabletOriginal Medicationterbinafine 250 MG Oral Tablet *Reorder from [facility] for eRx and Interaction Alerts*, Medication List reviewed and reconciled with the patient * Allergies: A spirin: Allergy - Onset Date 06/12/2012, Orphenadrine: Allergy - Onset Date 06/19/2022. Objective: * Vitals: W t:128lbs, Wt-k.06 kg. * Examination: C onstitutional: Constitutional T he patient is awake, alert, well developed, well groomed and well nourished. D ermatologic: Skin findings: S kin is thin, atrophic and lacking pedal hair. Hypertrophic / hyperkeratotic lesion: d orsal aspect of the right 5th digit, dorsal aspect of right 1st metatarsal head. Nail pathology: N ails 1-5 bilateral are elongated, thick, discolored, and dystrophic with subungual debris. They are painful to palpation. ? V ascular: Dorsalis pedis pulse: 0 /4, bilateral. Posterior tibial pulse: 1 /4, bilaterally. Capillary refill: g reater than 3 seconds. Edema: N o edema, bilateral. N eurologic: Gross sensation G ross sensation is intact to light touch.? Paresthesias to the digits bilateral. M usculoskeletal: Muscle Strength M uscle strength is 5/5 in regards to dorsiflexion, plantarflexion, inversion, and eversion in bilateral lower extremities. ? Assessment: * Assessment: 1. T inea unguium - B35.1 (Primary) 2 . T ype 2 diabetes mellitus with other circulatory complications - E11.59 3 . P ain in right toe(s) - M79.674 ? 4 . P ain in left toe(s) - M79.675 5 . A cquired keratosis [keratoderma] palmaris et plantaris - L85.1 Plan: * Treatment: 2. A cquired keratosis [keratoderma] palmaris et plantaris Notes: A total of 2 corns or calluses, as described in the note above, were cut and pared utilizing a #15 blade * Immunizations: Immunization record has been reviewed and updated. * Follow Up: 1 0 - 12 weeks (Reason: At-Risk Foot care, sooner if problems develop.) * Billing Information: * Visit Code: 45652 Office Visit, Est Pt., Level 3. * Procedure Codes: * Electronic signature of EVON EVANS DPM on 03/19/2025 at 04:40 PM CDT Sign off status: Pending * Provider: Janie Evans DPM Date: 0 12/31/2023 Generated for Katya nation/Anitha/eTransmitting on: 1 04:40 PM CDT History and Physical Notes * HPI (History of Present Illness) Category Sub-Category Detail Notes Category Not es HPI General care Patient presents to the office for diabetic foot care. Patient states that their nails are thickened, elongated and painful. Patient states that it is aggravated by shoe gear. Onset is gradual., Patient denies taking blood thinners., Date last seen by Dr. Weiss was 10/2023., Initials mca Examination Category Sub-Category Detail Notes Category Not es Dermatologic Skin findings: Skin is thin, at rophic and lacking pedal hair Nail pathology: Nails 1-5 bilateral are elongated, thick, discolored, and dystrophic with subungual debris. They are painful to palpation Hypertrophic / hyperkeratotic lesion: do rsal aspect of the right 5th digit, dorsal aspect of right 1st metatarsal head Neurologic Gross sensation Gross sensation is intact to light touch. Paresthesias to the digits bilateral Vascular Dorsalis pedis pulse: 0/4, bilateral Edema: No edema, bilateral Capillary refill: greater than 3 secon ds Posterior tibial pulse: 1/4, bilaterally Musculoskeletal Muscle Strength Muscle strength is 5/5 in regards to dorsiflexion, plantarflexion, inversion, and eversion in bilateral lower extremities Constitutional Constitutional The patient is a wake, alert, well developed, well groomed and well nourished
--- OUTSIDE RECORDS SUMMARY | 2024-12-22 05:30 | XMS_ITS ---
Author Organization [facility] Address [address] [place], [place] [id number] Care Team Providers Care Global Logistics Analyst Name Role Phone EVON EVANS Unavailable [phone] Sim Weiss Unavailable Unavailable REASON FOR VISIT *General care Encounters Encounter Location Date Provider Diagnosis [facility] [place] [address] [place], [place] [id number] 12/22/2024 EVON EVANS Plan Of Treatment Next Appt Details Provider Name:EVON EVANS, 09:00:00 AM, [address], [place], [place], [id number], Progress Notes * HENRIETTA PRUITT IDOB: [birth year] (74 yo F)Acc No.[id number]:12/22/2024 Patient: HENRIETTA HINKLE I Provider: Janie Evans DPM :1950 A ge:74 Y S ex:Female Date:12/22/2024 Address:[address], [place] [id number] Subjective: * Chief Complaints: * 1 . *General care. * Medical History: Objective: * Vitals: Assessment: Plan: * Treatment: * Billing Information: * Visit Code: * Procedure Codes: * Electronic signature of EVON EVANS DPM on 03/19/2025 at 04:41 PM CDT Sign off status: Pending * Provider: Janie Evans DPM Date: 0 12/22/2024 Generated for Katya nation/Karla on: 1 04:41 PM CDT
--- OUTSIDE RECORDS SUMMARY | 2025-01-05 04:00 | XMS_ITS ---
Author Organization [facility] Address [address] [place], [place] [id number] Care Team Providers Care Cordage Sales Representative Name Role Phone EVON EVANS Unavailable [phone] Sim Weiss Unavailable Unavailable Allergies Allergen (clinical drug ingredient) Drug/Non Drug Allergy documented on EMR Reaction Allergy Type Onset Date Status aspirin Aspirin Unknown Drug Allergy 06/12/2012 active orphenadrine Orphenadrine Unknown Drug Allergy 06/19/2022 active REASON FOR VISIT Patient presents for at-risk foot care . The patient has painful toenails and calluses that are causing difficulty with ambulation and shoegear. The onset is gradual Medications Medication SIG (Take, Route, Frequency, Duration) Notes Start Date End Date Status acetaminophen 325 MG / oxycodone hydrochloride 5 MG Oral Tablet [Percocet] ORAL acetaminophen 325 MG / oxycodone hydrochloride 5 MG Oral Tablet [Percocet]Original Medicationacetaminophen 325 MG / oxycodone hydrochloride 5 MG Oral Tablet [Percocet] *Reorder from [facility] for eRx and [facility] 8 Active terbinafine 250 MG Oral Tablet ORAL terbinafine 250 MG Oral TabletOriginal Medicationterbinafine 250 MG Oral Tablet *Reorder from [facility] for eRx and Interaction Alerts* 4 Active Vital Signs Weight 128 lbs 01/05/2025 Weight-kg 58.06 kg 01/05/2025 Height 65.0 in 01/05/2025 Height-cm 165.1 cm 01/05/2025 BMI 21.3 kg/m2 01/05/2025 Encounters Encounter Location Date Provider Diagnosis [facility] [address] [place], [place] [id number] 01/05/2025 EVON EVANS Tinea unguium B35.1 ; Type 2 diabetes mellitus with other circulatory complications E11.59 ; Pain in right toe(s) M79.674 ; Pain in left toe(s) M79.675 and Acquired keratosis [keratoderma] palmaris et plantaris L85.1 Assessments Encounter Date Diagnosis (ICD Code) Assessment Notes Treatment Notes Treatment Clinical Notes Section Notes 01/05/2025 Tinea unguium (ICD-10 - B35.1) Nails 1-5 Bilateral were debrided extensively with nail nippers and emery board, reducing length and girth to pink healthy tissue with any subungual debris and necrotic tissue removed 01/05/2025 Type 2 diabetes mellitus with other circulatory complications (ICD-10 - E11.59) 01/05/2025 Pain in right toe(s) (ICD-10 - M79.674) 01/05/2025 Pain in left toe(s) (ICD-10 - M79.675) 01/05/2025 Acquired keratosis [keratoderma] palmaris et plantaris (ICD-10 [...] problems develop. Provider Name:EVON EVANS, 09:00:00 AM, [address], [place], [place], [id number], Progress Notes * HENRIETTA PRUITT IDOB: [birth year] (74 yo F)Acc No.[id number]:01/05/2025 Patient: HENRIETTA HINKLE I Provider: Janie Evans DPM :1950 A ge:74 Y S ex:Female Date:01/05/2025 Address:[address] [id number] Subjective: * Chief Complaints: * 1 . Patient presents for at-risk foot care . The patient has painful toenails and calluses that are causing difficulty with ambulation and shoegear. The onset is gradual. * HPI: H PI: General care P atient presents to the office for diabetic foot care. Patient states that their nails are thickened, elongated and painful. Patient states that it is aggravated by shoe gear. Onset is gradual., Patient denies taking blood thinners., Date last seen by Dr. Weiss was 08/2024., Initials [facility]. * ROS: G eneral / Constitutional: Patient [...] of b urning/ tingling. * Medical History: * Family History: F ather: PRN - [...] 5 MG Oral Tablet [Percocet] *Reorder from [facility] for eRx and [facility], Taking terbinafine 250 MG Oral Tablet ORAL , Notes to Pharmacist: terbinafine 250 MG Oral TabletOriginal Medicationterbinafine 250 MG Oral Tablet *Reorder from [facility] for eRx and Interaction Alerts*, Medication List reviewed and reconciled with the patient * Allergies: A spirin: Allergy - Onset Date 06/12/2012, Orphenadrine: Allergy - Onset Date 06/19/2022. Objective: * Vitals: S hoe Size: 7.5, Wt:128lbs, Wt-k.06 kg, Ht: 65.0 in, Ht-cm: 165.1 cm, BMI:21.3Index, Body Surface Area: 1.63. * Examination: C onstitutional: Constitutional T he patient is awake, alert, well developed, well groomed and well nourished. D ermatologic: Skin findings: S kin is thin, atrophic and lacking pedal hair. Hypertrophic / hyperkeratotic lesion: m edial aspect of the right 2nd digit. Nail pathology: N ails 1-5 bilateral are [...] inversion, and eversion in bilateral lower extremities. Hammertoes D orsally contracted digits 2nd digit right foot. The deformity is flexible and reducible. Hallux Abducto Valgus L aterally deviated hallux with medial prominence of the 1st metatarsal head right foot.. Assessment: * Assessment: 1. T inea unguium [...] record has been reviewed and updated. * Preventive Medicine: Screenings: F all risk screening F all Risk Assessment: N o falls in the past year. * Follow Up: 1 0 - 12 weeks (Reason: At-Risk Foot care, sooner if problems develop.) * Billing Information: * Visit Code: 27673 Office Visit, Est Pt., Level 3. * Procedure Codes: * Electronic signature of EVON EVANS DPM on 03/19/2025 at 04:41 PM CDT Sign off status: Pending * Provider: Janie Evans DPM Date: 0 01/05/2025 Generated for Katya nation/Anitha/Sarinaitting on: 1 04:41 PM CDT History and Physical Notes * [...] Date last seen by Dr. Weiss was 08/2024., Initials [facility] Examination Category Sub-Category Detail Notes Category Not es Dermatologic Skin findings: Skin is thin, at rophic and lacking pedal hair Nail pathology: Nails 1-5 bilateral are elongated, thick, discolored, and dystrophic with subungual debris. They are painful to palpation Hypertrophic / hyperkeratotic lesion: me dial aspect of the right 2nd digit Neurologic Gross sensation Gross sensation is intact to light touch. Paresthesias to the digits bilateral Vascular Dorsalis pedis pulse: 0/4, bilateral Edema: No edema, bilateral Capillary refill: greater than 3 secon ds Posterior tibial pulse: 1/4, bilaterally Musculoskeletal Muscle Strength Muscle strength is 5/5 in regards to dorsiflexion, plantarflexion, inversion, and eversion in bilateral lower extremities Hammertoes Dorsally contracted digits 2nd digit right foot. The deformity is flexible and reducible Hallux Abducto Valgus Laterally deviated hallux with medial prominence of the 1st metatarsal head right foot. Constitutional Constitutional The patient is a wake, alert, well developed, well groomed and well nourished
--- NOTE | ~2025-03-19 | CT_ITS ---
EXAMINATION: CT abdomen pelvis w con DATE: 03/19/2025 16:32 INDICATION: Mid abdominal pain TECHNIQUE: Computed tomography (CT) of the abdomen and pelvis was performed with 100 mL Omnipaque-350 intravenous contrast. Automated exposure control and iterative reconstruction technique were employed. The dose-length product was 428.19 mGy-cm. COMPARISON: None FINDINGS: Mild discoid atelectasis at the lingula and left lower lobe. Cardia megaly. No pericardial or pleural effusion. Small sliding-type hiatal hernia. There are couple subcentimeter hepatic cyst. Gallbladder, spleen, pancreas and bilateral adrenal glands are normal. There is small region of cortical scarring at the upper pole of the right kidney. 8 mm cyst at the upper pole the right kidney. 3 mm nonobstructing stone at a lower pole calyx of the left kidney. Mild right- sided and mild to moderate left-sided hydronephrosis with transition points at the ureteral pelvic junction without evident obstructing stones or masses. Bladder, anteverted uterus and bilateral adnexa are unremarkable. There is fluid scattered throughout the small bowel without tania dilation or discrete transition point to suggest obstruction. Colon and appendix are normal. Small amount of ascites in the deep pelvis. No abscess or free intraperitoneal gas. No pathologically enlarged abdominal or pelvic lymphadenopathy. There are couple fat-containing supraumbilical ventral hernias. Mild S-shaped curvature of the lumbar spine with severe spondylosis. IMPRESSION: 1. Nonspecific fluid throughout nondilated small bowel which could be seen in the setting of an enteritis. 2. Small amount of scattered ascites in the abdomen and pelvis. 3. 3 mm nonobstructing stone at the lower pole the left kidney with mild right- sided and moderate left-sided hydronephrosis with transition points at the ureteropelvic junctions which are without obstructing stones or masses. 4. Small sliding-type hiatal hernia. 5. Cardiomegaly. Reviewed, dictated and finalized at location A. IMPRESSION: 1. Nonspecific fluid throughout nondilated small bowel which could be seen in t he setting of an enteritis. 2. Small amount of scattered ascites in the abdomen and pelvis. 3. 3 mm nonobstructing stone at the lower pole the left kidney with mild right- sided and moderate left-sided hydronephrosis with transition points at the uret eropelvic junctions which are without obstructing stones or masses. 4. Small sliding-type hiatal hernia. 5. Cardiomegaly.
[2025-03-19 15:54] VITALS: BP 156/88; PULSE 79; RESP 18; TEMP 36.4; O2SAT 99
--- NOTE | 2025-03-19 15:57 | ECG_ITS ---
Test Date: 2025-03-19 16:06:53 Measurements Intervals Whitman Rate: 70 P: 31 KS: 183 QRS: 5 QRSD: 86 T: 30 QT: 442 QTc: 480 Interpretive Statements SINUS RHYTHM WITH OCCASIONAL SUPRAVENTRICULAR PREMATURE COMPLEXES MINIMAL Q WAVES- HIGH LATERAL LEADS BASELINE ARTIFACT- I, II, III, AVR, AVL, AVF, V5 BORDERLINE ECG No previous ECG available for comparison Electronically Signed On 03-19-2025 16:11:48 CDT by Jacky Todd D.O.
[2025-03-19] MEDS: SODIUM CHLORIDE 0.9% IV 1,000 ML 999 ML IV CONT (16:07)
[2025-03-19] MEDS: ONDANSETRON INJ 4 MG/2 ML VIAL IV PUSH ×2 (16:09→17:51)
[2025-03-19 16:24] LABS: Hematocrit 44.2 % (37.0-47.0); Hemoglobin 14.9 g/dL (12.0-15.0); Immature Granulocyte Percent A 0.3 % (0-0.5); Lymphocytes Absolute Auto 0.49 K/mm3 (0.9-3.2); Mean Corpuscular HGB Conc 33.7 g/dl (32-36); Mean Corpuscular Hemoglobin 31.7 pg (26-34); Mean Corpuscular Volume 94.0 fl (80-100); Nucleated Red Blood Cells Absolute Auto 0.000 K/mm3 (0.0-0.012); Nucleated Red Blood Cells Perc 0.0 % (0.0-0.2); Platelet Count Result 273 k/mm3 (150-375); Red Blood Count 4.70 M/mm3 (4.2-5.4); White Blood Count 11.6 K/mm3 (4.5-10.0)
[2025-03-19 16:26] LABS: Estimated CRCL calculation 75 ml/min; Estimated Glomerular Filt Rate > 60
[2025-03-19 16:35] LABS: Alanine Aminotransferase 37 U/L (6-35); Albumin Level 4.6 g/dL (3.5-5.1); Alkaline Phosphatase 80 U/L (38-126); Anion Gap 10 mmol/L (4-12); Aspartate Amino Transferase 47 U/L (14-36); Bilirubin,Total 0.9 mg/dL (0.2-1.3); Blood Urea Nitrogen 21 mg/dL (7-17); Calcium 10.6 mg/dL (8.4-10.2); Carbon Dioxide 25 mmol/L (22-30); Chloride 103 mmol/L (98-107); Estimated CRCL calculation 65 ml/min; Estimated Glomerular Filt Rate > 60; Glucose 145 mg/dL (65-110); Lipase 40 U/L (23-300); Potassium 4.5 mmol/L (3.4-5.0); Sodium 138 mmol/L (137-145); Total Protein 7.6 g/dL (6.3-8.2)
[2025-03-19 16:36] LABS: INR 0.9; Prothrombin Time 12.4 Seconds (11.1-14.7)
--- OUTSIDE RECORDS SUMMARY | 2025-03-19 16:41 | XMS_ITS | Patient Health Record ---
Author Organization [facility] Address [address] [place], [place] [id number] Care Team Providers Care Supervisor Parking Lot Name Role Phone EVON EVANS Unavailable [phone] Sim Wiess Unavailable Unavailable Allergies Allergen (clinical drug ingredient) Drug/Non Drug Allergy documented on EMR Reaction Allergy Type Onset Date Status aspirin Aspirin Unknown Drug Allergy 06/12/2012 active orphenadrine Orphenadrine Unknown Drug Allergy 06/19/2022 active Reason For Referral No Information Medications Medication SIG (Take, Route, Frequency, Duration) Notes Start Date End Date Status acetaminophen 325 MG / oxycodone hydrochloride 5 MG Oral Tablet [Percocet] ORAL acetaminophen 325 MG / oxycodone hydrochloride 5 MG Oral Tablet [Percocet]Original Medicationacetaminophen 325 MG / oxycodone hydrochloride 5 MG Oral Tablet [Percocet] *Reorder from [facility] for eRx and [facility] 8 Active terbinafine 250 MG Oral Tablet ORAL terbinafine 250 MG Oral TabletOriginal Medicationterbinafine 250 MG Oral Tablet *Reorder from [facility] for eRx and Interaction Alerts* 4 Active Immunizations Vaccine Route Administration Date Status Comme nts Influenza, high dose seasonal Unknown 03/08/2023 Admini stered Vital Signs Height-cm 165.1 cm 01/05/2025 Weight-kg 58.06 kg 01/05/2025 Height 65.0 in 01/05/2025 Weight 128 lbs 01/05/2025 BMI 21.3 kg/m2 01/05/2025 Encounters Encounter Location Date Provider Diagnosis [facility] [place] [address] [place] [id number] 01/05/2025 EVON SNOOK Tinea unguium B35.1 ; Type 2 diabetes mellitus with other circulatory complications E11.59 ; Pain in right toe(s) M79.674 ; Pain in left toe(s) M79.675 and Acquired keratosis [keratoderma] palmaris et plantaris L85.1 [facility] [place] [address] [place] [id number] 04/28/2024 EVON SNOOK Tinea unguium B35.1 ; Type 2 diabetes mellitus with other circulatory complications E11.59 ; Pain in right toe(s) M79.674 ; Pain in left toe(s) M79.675 and Acquired keratosis [keratoderma] palmaris et plantaris L85.1 [facility] [place] [address] [place] [id number] 09/15/2024 EVON SNOOK Tinea unguium B35.1 ; Type 2 diabetes mellitus with other circulatory complications E11.59 ; Pain in right toe(s) M79.674 ; Pain in left toe(s) M79.675 and Acquired keratosis [keratoderma] palmaris et plantaris L85.1 [facility] [place] [address] [place] [id number] 11/17/2024 EVON SNOOK Acquired keratosis [keratoderma] palmaris et plantaris L85.1 ; Hallux valgus (acquired), right foot M20.11 ; Other hammer toe(s) (acquired), right foot M20.41 and Pain in right foot M79.671 Assessments Encounter Date Diagnosis (ICD Code) Assessment Notes Treatment Notes Treatment Clinical Notes Section Notes 04/28/2024 Tinea unguium (ICD-10 - B35.1) Nails 1-5 Bilateral were debrided extensively with nail nippers and emery board, reducing length and girth to pink healthy tissue with any subungual debris and necrotic tissue removed 04/28/2024 Type 2 diabetes mellitus with other circulatory complications (ICD-10 - E11.59) 09/15/2024 Tinea unguium (ICD-10 - B35.1) Nails 1-5 Bilateral were debrided extensively with nail nippers and emery board, reducing length and girth to pink healthy tissue with any subungual debris and necrotic tissue removed 09/15/2024 Type 2 diabetes mellitus with other circulatory complications (ICD-10 - E11.59) 11/17/2024 Acquired keratosis [keratoderma] palmaris et plantaris (ICD-10 - L85.1) Hyperkeratosis: The skin was prepped with isopropyl alcohol. Using a 15-blade scalpel, the hyperkeratotic skin lesions were sharply debrided down to healthy appearing skin. Emollient: Recommend that the patient use an emollient such as [id number] Eucerin cream, Vanicream, or other lotion to the affected area. 11/17/2024 Hallux valgus (acquired), right foot (ICD-10 - M20.11) Bunion: Discussed various treatments with the patient regarding hallux abducto valgus deformity. Discussed conservative care consisting of padding, wider shoes, anti-inflammatorie s, and orthotics. Discussed surgical treatment options and answered all questions about the intra-operative and post-operative treatment course. 01/05/2025 Tinea unguium (ICD-10 - B35.1) Nails 1-5 Bilateral were debrided extensively with nail nippers and emery board, reducing length and girth to pink healthy tissue with any subungual debris and necrotic tissue removed 01/05/2025 Type 2 diabetes mellitus with other circulatory complications (ICD-10 - E11.59) 09/15/2024 Pain in right toe(s) (ICD-10 - M79.674) 01/05/2025 Pain in right toe(s) (ICD-10 - M79.674) 11/17/2024 Other hammer toe(s) (acquired), right foot (ICD-10 - M20.41) Hammertoe Deformity: Discussed various treatments for hammer toes with the patient . Discussed conservative care consisting of padding, wider shoes, anti-inflammatorie s, and orthotics. Discussed surgical treatment options and answered all questions about the intra-operative and post-operative treatment course. Padding: Application of accomodative padding to offload pressure from area. 04/28/2024 Pain in right toe(s) (ICD-10 - M79.674) 04/28/2024 Pain in left toe(s) (ICD-10 - M79.675) 11/17/2024 Pain in right foot (ICD-10 - M79.671) 01/05/2025 Pain in left toe(s) (ICD-10 - M79.675) 09/15/2024 Pain in left toe(s) (ICD-10 - M79.675) 01/05/2025 Acquired keratosis [keratoderma] palmaris et plantaris (ICD-10 - L85.1) A total of 2 corns or calluses, as described in the note above, were cut and pared utilizing a #15 blade 09/15/2024 Acquired keratosis [keratoderma] palmaris et plantaris (ICD-10 - L85.1) A total of 2 corns or calluses, as described in the note above, were cut and pared utilizing a #15 blade 04/28/2024 Acquired keratosis [keratoderma] palmaris et plantaris (ICD-10 - L85.1) A total of 2 corns or calluses, as described in the note above, were cut and pared utilizing a #15 blade Plan Of Treatment Next Appt Details Provider Name:EVON EVANS, 09:00:00 AM, [address], [facility], [place], [place], [id number], Insurance Providers Payer Name Payer Address Payer Phone Subscriber Number Group Number Insured Name Patient Relationship to Insured Coverage Start Date Coverage End Date [employer] [address] [place] [phone] [id number] HENRIETTA PRUITT Self - patient is the insured
--- OUTSIDE RECORDS SUMMARY | 2025-03-19 16:42 | XMS_ITS | Data Portability ---
Author Organization [facility], [id number] [facility] Address [address] [place] [address] Assessment No assessment recorded. Plan of Treatment Reminders Order Date Submit Date Provider Last Modified By Organization Details Last Modified Time Details Appointments ANNUAL - EST 15 026 02:15PM CHARY LION MD Not available Not available Not available Lab None record ed. Referral None record ed. Procedures None record ed. Surgeries None record ed. Imaging None record ed. Medication Orders None record ed. Patient TargetsNo targets recorded. Patient InstructionsNo instructions recorded. Reason for Referral None Reported. 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 67235777 Active Bulging lumbar disc CHARY LION MD [address] [facility] [address], [place], [place], [address], [facility] for [facility] 5 12:38:24 Mixed hyperlipid emia 982435088 Active CHARY LION MD [address] [facility] [address], [place], [place], [address], [facility] 5 12:38:43 Idiopathic scoliosis AND/OR kyphoscoli osis Active CHARY LION MD [address] [facility] [address], [place], [address], [facility] for [facility] 5 12:38:35 Arthropath y 936264198 Active Arthritis CHARY LION MD [address] [facility] [address], [place], [address], [facility] for Womens [facility] 5 12:38:16 Essential hypertensi on 13231688 Active CHARY LION MD [address] [facility] [address], [place], [place], [address], [facility] 5 12:38:29 Essential tremor 287577232 Active [address] [facility] 5 13:00:16 Problem Notes None recorded. Procedures Surgical History Date Name Laterality Status Provider Name and Address Organization Details Recorded Time 4 Date of Last Mammogram completed Ana Live [facility] 12/16/2024 14:27:39 3 [place] [address] [place] [address] [address], [place], [address], [facility] for [facility] 12/17/2024 12:39:25 8 Date of Last Pap Smear [facility] 12/16/2024 14:27:15 other specified functional endoscopic sinus surgery - therapeutic endoscopy of nose [place] sinus [place] [address] [place] [address] [address], [place], [address], [facility] for [facility] 12/17/2024 12:39:40 hernia repair [place] [address] [place] [address] [address], [place], [address], [facility] for [facility] 12/17/2024 12:39:31 repair of eye [place] [address] [place] [address] [address], [place], [address], [facility] for [facility] 12/17/2024 12:39:47 colonoscopy [place] [address] [place] [address] [address], [place], [address], [facility] for [facility] 12/17/2024 12:39:14 Imaging Results None recorded. Procedure Notes None recorded. Medical Equipment None Reported. Allergies Allergen ID Allergen Name Allergen Category Reaction Reaction Severity Criticality Documentation Date Start Date Code Code System Note Provider Name and Address Organization Details Recorded Time 319249 aspirin medicatio n Not available Not available Not available 09/25/2024 1191 RxNorm Hives , Rash, Swell ing Not Available [facility] 13:59:41 621445 cat dander environme nt Not available Not available Not available 12/17/2024 [facility] 12:52:49 301042 omeprazol e medicatio n Not available Not available Not available 12/17/2024 7646 RxNorm stoma ch could not becca ate [facility] 12:59:39 198085 primidone medicatio n Not available Not available Not available 12/17/2024 8691 RxNorm blurr ed visio n, bp fluct ated [facility] 13:01:37 Medications Name Sig Start Date Stop Date Status Note LastModified by Organization Details LastModified Time primidone 50 mg tablet TAKE 1 TABLET BY MOUTH NIGHTLY 12/17 completed Not Available Not Available Not Available atorvastat in 20 mg tablet Take 1 tablet every day by oral route. active Not Available Not Available No t Available tizanidine 4 mg tablet Take 1 tablet every 6 hours by oral route. active Not Available Not Available No t Available meloxicam 15 mg tablet TAKE 1 TABLET BY MOUTH ONCE DAILY active Not Available Not Available No t Available famotidine 40 mg tablet TAKE 1 TABLET BY MOUTH ONCE DAILY AT BEDTIME NEEDED active Not Available Not Available No t Available alendronat e 70 mg tablet Take 1 tablet every week by oral route. 12/17 completed Not Available Not Available Not Available acetaminop hen 300 mg-codeine 30 mg tablet TAKE 1 TABLET BY MOUTH THREE TIMES DAILY active Not Available Not Available No t Available omeprazole 40 mg capsule,de layed release TAKE 1 CAPSULE BY MOUTH IN THE MORNING BEFORE MEAL(S) 12/17 completed Not Available Not Available Not Available famotidine 20 mg tablet TAKE 1 TABLET BY MOUTH AT BEDTIME 12/17 completed Not Available Not Available Not Available nystatin 100,000 unit/gram topical cream APPLY TO THE AFFECTED AREA(S) ONCE DAILY 12/17 completed Not Available Not Available Not Available lisinopril 10 mg tablet Take 1 tablet every day by oral route. active Not Available Not Available No t Available gabapentin 100 mg capsule TAKE 1 CAPSULE BY MOUTH NIGHTLY 12/17 completed Not Available Not Available Not Available mometasone 0.1 % topical cream APPLY TO THE AFFECTED AREA(S) ONCE DAILY active Not Available Not Available No t Available Botox 100 unit injection Take as needed by injectio n route. active every 6 months Not Available Not Available Not Available escitalopr am 10 mg tablet Take 1 tablet every day by oral route. active Not Available Not Available No t Available magnesium active Not Available Not Kayla ilable Not Available meloxicam 12/17 completed Not Available Not Available Not Available Vitamin D3 active Not Available Not Av ailable Not Available Vitamin B12 active Not Available Not Available Not Available pyridoxine (vitamin B6) 50 mg capsule Take by oral route. active Not Available Not Available No t Available PreviDent 5000 Booster Plus 1.1 % dental paste USE DIRECTED DAILY active Not Available Not Available No t Available Durolane 60 mg/3 mL intra-amanda cular syringe Take by intraart icular route. active every 6 months Not Available Not Available Not Available Glucosamin e Chondroiti n active Not Available Not Available Not Available Vitals Date Recorded Body weight Body mass index (BMI) Body height Systolic And Diastolic Provider Name and Address Organization Details Last Updated DateTime 12/17/2024 01474.42 g 29.2 kg/m2 162.56 cm 112/62 mm[Hg] Freya Galicia [facility] 12/17/2024 13:06:40 Social History Question Answer Notes LastModified by Organizat ion Details LastModified Time Tobacco Smoking Status Never Smoker Screening : Not Available [employer] 09/25/2024 18:20:40 Do You Have An Advance Directive? Yes Information not available 12/17/2024 How Many Years Have You Consumed Alcohol? 0 Information not available 12/17/2024 What Is Your Level Of Caffeine Consumption? Occasional Information not available 12/17/2024 What Type Of Diet Are You Following? REGULAR Information not available 12/17/2024 What Is Your Relationship Status? Information not available 12/17/2024 Sex: Female Functional Status Question Answer Note LastModified by Organizat ion Details LastModified Time Do you use any illicit or recreational drugs? No Information not available 09/25/2024 What is your level of alcohol consumption? Occasional Qty: 0-2 per day; Note: rare Information not available 09/25/2024 Are you currently employed? 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 Family History Relationship Description Onset Age of this Age Resolved Age Notes LastModified by Organization Details LastModified Time Father Mixed hypercholest erolemia and hypertriglyc eridemia Elevat ed Choles terol/ Trigly ceride s bvoellinger Not available 12/17/2024 12:52:49 Sister Mixed hypercholest erolemia and hypertriglyc eridemia Elevat ed Choles terol/ Trigly ceride s bvoellinger Not available 12/17/2024 12:52:49 Sister Parkinson's disease Sara son's Diseas e bvoellinger Not available 12/17/2024 12:52:49 Father Hypertensive disorder High Blood Pressu re Not available 09/25/2024 17:54:33 Father Heart disease Heart Diseas e Not available 09/25/2024 17:54:34 Sister Hypertensive disorder High Blood Pressu re Not available 09/25/2024 17:54:33 Sister Heart disease Heart Diseas e Not available 09/25/2024 17:54:34 Mother Osteoporosis Osteop orosis Not available 09/25/2024 17:54:34 Mother Family history of malignant neoplasm of ovary bvoellinger Not available 11/26 12:52:49 Mother Malignant neoplasm of lung bvoellinger Not available 11/26 12:52:49 Mother Malignant neoplastic disease bvoellinger Not available 11/26 12:52:49 Medical History Condition Response Ortho-Other Y Cancer- Genetic screening Cardiology- High Blood Pressure Y Rheumatology- Arthritis Y Cardiology- High Cholesterol Y Gynecological History Statement/Question Response History of PCOS N Date of Last Mammogram 12/17/2023 History of Fibroids N History of Infertility N History of Vulvar Dysplasia N History of Cervical Dysplasia Y History of Recurrent Ovarian Cysts N Age at first intercourse 21 If Post Menopausal, Age at Menopause 56 History of Endometriosis N Date of Last Colonoscopy Sexually Active? Y History of Dysmenorrhea N Menses Monthly N Date of Last Pap Smear 05/28/2017 Sexual Problems? N Date of Last Cholesterol Screening 05/28 Date of Last Bone Density Obstetrics History GPAL:G 2 P 2 0 0 2 Type Value Multiple Births 0 Full Term 2 Induced 0 Spontaneous 0 Premature 0 Living 2 Ectopics 0 Total 2 Immunizations Vaccine Type Date Status Note Provider Nam e and Address Organization Details Recorded Time zoster recombinant 2 completed Freya Carloser null, [place] - [facility] 12/17/2024 09:58:41 zoster recombinant 2 completed Freya Galicia [place] [facility] 12/17/2024 09:58:42 Influenza, high-dose, quadrivalent, PF 2 completed Freya Gal[place] [facility] 12/17/2024 09:58:42 Influenza, high-dose, quadrivalent, PF 3 completed Freya Galicia [place] [facility] 12/17/2024 09:58:42 Influenza, adjuvanted, quadrivalent, PF 0 completed Freya Galicia [place] [facility] 12/17/2024 09:58:42 COVID-19, mRNA, LNP-S, PF, 100 mcg/0.5mL dose or 50 mcg/0.25mL dose 1 completed Freya Galicia [place] [facility] 12/17/2024 09:58:42 COVID-19, mRNA, LNP-S, PF, 100 mcg/0.5mL dose or 50 mcg/0.25mL dose 1 completed Freya [place] [facility] 12/17/2024 09:58:42 COVID-19, mRNA, LNP-S, PF, 100 mcg/0.5mL dose or 50 mcg/0.25mL dose 2 completed Freya [place] [facility] 12/17/2024 09:58:42 COVID-19, mRNA, LNP-S, PF, 100 mcg/0.5mL dose or 50 mcg/0.25mL dose 1 completed Freya [place] [facility] 12/17/2024 09:58:42 COVID-19, mRNA, LNP-S, bivalent, PF, 50 mcg/0.5 mL or 25mcg/0.25 mL dose 2 completed Freya [place] [facility] 12/17/2024 09:58:42 RSV, recombinant, protein subunit RSVpreF, adjuvant reconstituted, 0.5 mL, PF 3 completed Frey[place] [facility] 12/17/2024 09:58:42 COVID-19, mRNA, LNP-S, PF, vernon-sucrose, 30 mcg/0.3 mL 3 completed Freya [place] [facility] 12/17/2024 09:58:42 COVID-19, mRNA, LNP-S, PF, vernon-sucrose, 30 mcg/0.3 mL 4 completed Frey[place] [facility] 12/17/2024 09:58:42 pneumococcal polysaccharide PPV23 3 completed Frey[place] [facility] 12/17/2024 09:58:42 Tdap 7 completed Frey[place] [facility] 12/17/2024 09:58:42 Pneumococcal conjugate PCV 13 7 completed Frey[place] [facility] 12/17/2024 09:58:42 zoster live 2 completed Frey[place] [facility] 12/17/2024 09:58:42 Influenza, high-dose, trivalent, PF 4 completed [place]rey[place] [facility] 12/17/2024 09:58:42 Influenza, high-dose, trivalent, PF 8 completed Frey[place] [facility] 12/17/2024 09:58:42 Influenza, high-dose, trivalent, PF 7 completed [place]rey[place] [facility] 12/17/2024 09:58:42 Influenza, split virus, trivalent, preservative 5 completed Frey[place] [facility] 12/17/2024 09:58:42 Influenza, split virus, trivalent, preservative 4 completed [place] [facility] 12/17/2024 09:58:42 Influenza, split virus, trivalent, preservative 3 completed [place] [facility] 12/17/2024 09:58:42 Td (adult), 2 Lf tetanus toxoid, preservative free, adsorbed 2 completed Frey[place] [facility] 12/17/2024 09:58:42 Hep A-Hep B 8 completed Frey[place] [facility] 12/17/2024 09:58:42 Hep A-Hep B 7 completed Frey[place] [facility] 12/17/2024 09:58:42 Hep A-Hep B 7 completed [facility] 12/17/2024 09:58:42 Past Encounters Encounter ID Performer Location Encounter Start Date Encounter Closed Date Diagnosis/Indication Diagnosis SNOMED-CT Code Diagnosis ICD10 Code Diagnosis IMO Codes Diagnosis Note [id number] CHARY LION MD [id number] [facility] [address] [facility] [place] [address] 12/17/2024 12:30:00 12/17/2024 13:22:46 Gynecologic examination 32160792 Z01.419 367559 Screening for malignant neoplasm of breast 399081417 Z12.39 [id number] Health Concerns Section Related Observation LastModified by Organization Detai ls LastModified Time None Recorded Concern Status LastModified by Organization Details LastModified Time None Recorded Advance Directives Directive Y: Payers Insurance Date Sequence Insurance Name Policy Number Policy Forman Covered Member ID Forman Member ID Guarantor Name 12/17/2024 1 [employer] (MEDICARE REPLACEMENT/ ADVANTAGE - PPO) [id number] Senia Cano [id number] Senia Cano Notes Date Note Type Note Provider Name and Address Organization Details Recorded Time 5 text/html Annual [employer] DIV[employer] MANAGER - McwhcReported by PatientGenitourinary symptomsFor urinary symptoms, patient reportsno hematuriaandno incontinence. For vulvar complaints, patient reportsnone. For vaginal complaints, patient reportsnone. For gastrointestinal symptoms, patient reportsno gastrointestinal symptoms.Breast symptomsFor breast, patient reportsno breast pain,no breast lump, andno nipple discharge.Endocrine symptomsFor sexual complaints, patient reportsno sexual complaints,no pain during intercourse/sexual function, andnormal libido. For menopausal symptoms, patient reportsno menopausal symptomsandnormal vaginal lubrication.Psychological symptomsFor psychological symptoms, patient reportsno depression,no anxiety, andno pmdd. frustrated that PCP doesn' tknow why she's fatigued. so I asked about sleep., states is terrible. lives alone, doesn't think snores. however I kept asking and YES extended family told her she DOES. I agree w PCP needs sleep eval. do not be resistant to SYBIL treatment as many options. pt understands. CHARY LION MD [address] [facility] [address], [place], [address], [facility] 12/17/2024 13:18:50 OBGyn Episode Ob Episode Information Episode Created Date Number of Fetuses Patient Bloodtype Patient rh Status Prepregnancy Weight lbs Domestic Partner Domestic Partner Phone Father Name Brass Molder Helper Status 10/11/19 25 1 CLOSED Fetus Data First Name Last Name Admitted to NICU Weight (g) Sex Living Outcome Pediatric Complications Fetus ID Race Codes Race Delivery Type [id number] Vaginal Donald Calculation Initial Donald Date Initial Exam Date Initial Exam Provider Initial Ultrasound Date Last Menstrual Period Date Ultra Sound Weeks Gestation 0 Eighteen To Twenty Week Donald Update Ultra Sound Date Fundal Height At Umbil Quickening Date Ultra Sound Latest Weeks Gestation Final Donald Confirmed By Final Donald Confirmed Date Final Donald Date Ultra Sound Latest Days Gestation 0 0 Menstrual History Last Menstrual Date Menses Monthly On Bcp Conception Prior Menses Frequency Hcg Plus Date Menarche Onset Age Delivery Information Delivery Date Delivery Type Labor Anesthesia Weeks Gestation Incision Type Labor Labor Length Hrs Delivered By Post Complications Tubal Sterilization Discharge Date Comments 0 , Discharge Information Feeding Method Contraceptive Method Maternal HG B and HCT Levels
--- OUTSIDE RECORDS SUMMARY | 2025-03-19 16:42 | XMS_ITS | Clinical Summary ---
Author Organization [facility] Address [address], [facility] [address] [place] [address] Phone Care Team Providers Care Still Runner Name Role Phone Sim Weiss MD Primary Care Provider Allergies Active Allergy Reactions Criticality Noted Date Comments Aspirin Hives,Swelling 07/16/2015 Face swelled Orphenadrine Hives 07/23/2015 Medications polyethylene glycol (MIRALAX) Powder Mix the entire bottle with 64 oz of a clear liquid. Use as directed by the office for colonoscopy prep. 255 g 0 6 Active acetaminophen-c odeine (TYLENOL #3) 300-30 MG Tablet Take 1-2 Tabs by mouth 2 times daily. Active meloxicam (MOBIC) 7.5 MG Tablet Take 7.5 mg by mouth daily. Active tiZANidine (ZANAFLEX) 2 MG Capsule Take 2 mg by mouth 3 times daily. Active Multiple Vitamin (MULTI-VITAMIN PO) Take 1 Tab by mouth daily. Active glucosamine-cho ndroitin 500-400 MG CapsuleIndicati ons:triple strength Take 1 Cap by mouth daily. Indications: triple strength Active Calcium Carbonate-Vitam in D (CALCIUM 500 + D PO) Take 1 Tab by mouth daily. Active alendronate (FOSAMAX) 70 MG TabletIndicatio ns:sundays Take 70 mg by mouth every 7 days. Indications: sundays Active B Complex-C (SUPER B COMPLEX PO) Take 1 Tab by mouth daily. Active linaclotide (LINZESS) 145 MCG Capsule Take 145 mcg by mouth every morning (before breakfast). Active Magnesium Citrate (CITRATE OF MAGNESIA PO) Take by mouth as needed. Active Family History Medical History Relation Name Comments Diabetes Father Heart Attack Father High Cholesterol Father Osteoarthritis Father Lung Cancer Mother Osteoarthritis Mother Ovarian Cancer Mother Asthma Sister 1 Thyroid Disease Sister 1 Diabetes Sister 2 Diabetes Sister 3 Relation Name Status Comments Father Mother Sister 1 Sister 2 Sister 3 Social History Tobacco Use Types Packs/Day Years Used Date Smoking Tobacco: Never Smokeless Tobacco: Never Alcohol Use Standard Drinks/Week Comments Yes 0 (1 standard drink = 0.6 oz pur e alcohol) occ glass of wine Comments Unknown Sex and Gender Information Value Date Recorded Sex Assigned at Not on file Legal Sex Female 8:46 PM CDT Gender Identity Not on file Sexual Orientation Not on file 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 Industry 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 Not on file Not on file N ot on file Last Filed Vital Signs Vital Sign Reading Time Taken Comments Blood Pressure 105/67 07/23/2015 11:00 AM APPLICATIONS DEVELOPMENT ANALYST Pulse - - Temperature 36 C (96.8 F) 07/23/2015 11:00 AM APPLICATIONS DEVELOPMENT ANALYST Respiratory Rate 16 07/23/2015 11:00 AM APPLICATIONS DEVELOPMENT ANALYST Oxygen Saturation 96% 07/23/2015 11:00 AM APPLICATIONS DEVELOPMENT ANALYST Inhaled Oxygen Concentration - - Weight 63.5 kg (140 lb) 07/16/2015 8:36 AM APPLICATIONS DEVELOPMENT ANALYST Height 170.2 cm (5' 7) 07/16/2015 8:36 AM APPLICATIONS DEVELOPMENT ANALYST Body Mass Index 21.93 07/16/2015 8:36 AM APPLICATIONS DEVELOPMENT ANALYST Plan of Treatment Health Maintenance Due Date Last Done Comments Hepatitis C Virus (HCV) Screening 1950 TdaP Immunization 1950 Cologuard 1996 Immunochemical Fecal Occult Blood 1996 Pneumococcal Immunization (5 0+ years) (1 of 1 - PCV) 2001 Zoster Immunization (1 of 2) 2001 Medicare Initial AWV [id number] 05/28/2020 Influenza Immunization (#1) 2025 SARS-COV-2 Immunization ( - season) 2025 Colonoscopy 03/03/2025 03/03/2020, 07/23/2015 Colorectal Cancer Screening 03/03/2025 Respiratory Syncytial Virus (RSV) Immunization (Adult) (1 - 1-dose 75+ series) 2026 Hepatitis B Immunization Aged Out No longer eligible based on patient's age to complete this topic Human Papillomavirus (HPV) Immunization Aged Out No longer eligible b ased on patient's age to complete this topic Meningococcal Immunization (ACWY) Aged Out No longer eligible b ased on patient's age to complete this topic Rotavirus Immunization Aged Out No lo nger eligible based on patient's age to complete this topic Procedures Procedure Name Priority Date/Time Associated Diagnosis Comments COLONOSCOPY Routine 03/03/2020 from Last 3 Months or Most Recently Relevant to Health Maintenance Results * COLONOSCOPY (03/03/2020) Tree Catsillo DO PROCEDURE/MINOR SURGICAL ORDERA BLES Final Result from Last 3 Months or Most Recently Relevant to Health Maintenance Insurance MEDICARE C [facility] Care Teams Still Runner Relationship Specialty Start Date End Date Sim Weiss MD [address] [facility] [address] [place] [id number] PCP - General Family Medicine 02/03/20
--- OUTSIDE RECORDS SUMMARY | 2025-03-19 16:42 | XMS_ITS | Clinical Summary ---
Author Organization [facility] [place] Address [address] [place] [address] Care Team Providers Care Multimedia Instructional Designer Name Role Phone Sim Weiss MD Primary Care Provider Allergies Active Allergy Reactions Criticality Noted Date Comments Aspirin Hives,Swelling Medium 07/16/2015 Face swelled Orphenadrine Hives Medium 07/23/2015 Medications acetaminophen-c odeine (TYLENOL with CODEINE #3) 300-30 mg per tablet 1 Active escitalopram (LEXAPRO) 10 mg tablet 1 Active Durolane 60 mg/3 mL syringe 1 Active magnesium citrate solution Take by mouth Active meloxicam (MOBIC) 15 mg tablet 1 Active polyethylene glycol (MIRALAX) 17 gram/dose powder Mix the entire bottle with 64 oz of a clear liquid. Use as directed by the office for colonoscopy prep. 6 Active tiZANidine (ZANAFLEX) 4 mg tablet 1 Active multivitamin tablet Take by mouth Active glucosamine-cho ndroitin (glucosamine-ch ondroitin) 500-400 mg capsule Take by mouth Active calcium carbonate-vitam in D3 500 mg(1,250mg) -200 unit powder in packet Take 1 tablet by mouth daily Active L. gasseri-B. bifidum-B longum 1.5 billion cell capsule Take by mouth Active onabotulinumtox in A (Botox) 100 unit recon soln 2 times yearly Activ e fluoride, sodium, 1.1 % paste 1 Active cyanocobalamin, vitamin B-12, (VITAMIN B-12 ORAL) Take by mouth Active atorvastatin (LIPITOR) 20 mg tablet Take 1 tablet (20 mg total) by mouth nightly 4 Active lisinopriL (PRINIVIL,ZESTR IL) 10 mg tablet Take 1 tablet (10 mg total) by mouth daily 4 Active famotidine (PEPCID) 40 mg tablet Take 1 tablet (40 mg total) by mouth nightly as needed 5 Active primidone (MYSOLINE) 50 mg tabletIndicatio ns:Essential Tremor Take 1 tablet (50 mg total) by mouth nightly 30 tablet 5 5 05/26/20 25 Active Active Problems Problem Noted Date Diagnosed Date Numbness 01/06/2021 Assessment & Plan (03/08/2021 9:39 AM CDT): Additional neurophysiologic testing demonstrates normal nerve conduction studies and no evidence of peripheral neuropathy at this time. Chronic L5 radiculopathy on the right is recognized. She does have a pain management physician a copy of her EMG/NCS testing has been provided to patient to take to treat her for subsequent care. She has been started on oral B12 and I have recommended follow-up surveillance of both B12 and hemoglobin A1c via PCP. She will follow-up in neurology clinic on an as-needed basis. Assessment & Plan (01/06/2021 11:46 AM CDT): Patient has a 1+ year history of appendicular paresthesia and dysesthesia in a glove and stocking distribution with reported history of prediabetes made several years ago. Her current EMG/NCS done lower extremities at [facility] reflects a probable chronic right L5 radiculopathy but no evidence of peripheral neuropathy. Differential diagnosis includes small fiber neuropathy, early large fiber neuropathy or alternate upper motor neuron conditions such as primary demyelination. I will obtain an MRI brain and cervical spine both with and without contrast, laboratory assessment looking for any medically addressable causes of potential neuropathy, and EMG/NCS of the upper extremities. She will follow-up in neurology clinic thereafter. Surgical History Surgery Date Site/Laterality Comments HERNIA REPAIR FOOT SURGERY SINUS SURGERY Medical History Medical History Date Comments Prediabetes Hypertension High cholesterol Family History Medical History Relation Name Comments Diabetes Father Heart attack Father Heart disease Father Hyperlipidemia Father Hypertension Father Alzheimer's disease Mother Arthritis Mother Essential Tremor Mother Liver cancer Mother Lung cancer Mother Uterine cancer Mother Arthritis Sister 1 Essential Tremor Sister 1 Hypertension Sister 1 parkinson's dis Sister 1 No Known Problems Sister 2 Arthritis Sister 3 Diabetes Sister 3 Hyperlipidemia Sister 3 Hypertension Sister 3 Arthritis Sister 4 Diabetes Sister 4 Hyperlipidemia Sister 4 Hypertension Sister 4 Relation Name Status Comments Father Mother Sister 1 Alive Sister 2 Alive Sister 3 Alive Sister 4 Alive Social History Tobacco Use Types Packs/Day Years Used Date Smoking Tobacco: Never Smokeless Tobacco: Never Tobacco Cessation:Counseling Given: Not Answered AUDIT-C Answer Date Recorded Q1: How often do you have a drink containing alcohol? Never 06/05/2024 Q2: How many drinks containi ng alcohol do you have on a typical day when you are drinking? Patient does not drink Q3: How often do you have si x or more drinks on one occasion? 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 Gender Identity Not on file Sexual Orientation Not on file Obstetrics History Last Filed Vital Signs Vital Sign Reading Time Taken Comments Blood Pressure 98/52 11/27/2024 10:23 AM CDT Pulse 79 11/27/2024 10:23 AM CDT Temperature 36.4 C (97.5 F) 03/08/2021 8:53 AM CDT Respiratory Rate - - Oxygen Saturation 97% 11/27/2024 10:23 AM CDT Inhaled Oxygen Concentration - - Weight 77.1 kg (170 lb) 11/27/2024 10:23 AM CDT Height 165.1 cm (5' 5) 11/27/2024 10:23 AM CDT Body Mass Index 28.29 11/27/2024 10:23 AM CDT Plan of Treatment Health Maintenance Due Date Last Done Comments Breast Cancer Screening-Mammogram 1950 Colon Cancer Screening-Colonoscopy 1950 Depression Screening 1950 Fall Risk Assessment 1950 Hepatitis C Screening 1950 Osteoporosis Screening-Bone Density Scan 1950 Zoster Vaccine (2 of 3) 08/15/2011 06/20/2011 Well Visit 65+ 2016 Pneumococcal vaccine 65+ (3 of 3 - PCV20 or PCV21) 04/09/2022 04/09/2017, 05/27/2013 Influenza Vaccine (#1) 2025 0, 02/24/2018, 03/07/2017, Additional history exists DTaP/Tdap/Td Vaccine (2 - Td or Tdap) 04/09/2027 04/09/2017, 12/10/2001 Hepatitis B Screening Completed 10/08/2017 , 05/09/2017, 04/09/2017 Insurance [facility] MEDICARE UHC MEDICARE ADVANTAGE [facility] Address: [address] [address] [place] [address] [employer] MEDICARE Care Teams Multimedia Instructional Designer Relationship Specialty Start Date End Date Sim Weiss MD [address] [facility] [address] [place] [address] PCP - General Family Medicine 01/06/21
--- OUTSIDE RECORDS SUMMARY | 2025-03-19 16:42 | XMS_ITS | Clinical Summary ---
Author Organization [facility] [employer] Address [address] [place] [address] Care Team Providers Care Blade Filer Name Role Phone Jasper Bautista MD Primary Care Provider + Source Comments [facility], [facility],non-owned Affiliates and Associated Physician Practices is amultiple site organization consisting of ambulatory clinics and hospital sitesin [place], [place], [place] and [place]. This disclosure is being madepursuant to the Care Everywhere program and may not contain all information available regarding this patient. Last updated 18.[facility] [employer] Allergies Active Allergy Reactions Criticality Noted Date Comments Aspirin 06/10/2016 Orphenadrine 06/10/2016 Medications * Be aware that medications may not be up to date on this document. Alwaysverify current medications with the patient. Acetaminophen-C odeine 300-30 MG Active alendronate (FOSAMAX) 70 MG tablet Take by mouth every 7 days Active SUPER B COMPLEX/C PO Reported on 06/10/2016 Active Calcium 500-125 MG-UNIT Active glucosamine-cho ndroitin 500-400 MG capsule Active linaCLOtide (LINZESS) 145 MCG capsule Active Magnesium Citrate (CITRATE OF MAGNESIA) solution Reported on 06/10/2016 Active meloxicam (MOBIC) 7.5 MG tablet Active MULTIPLE VITAMIN PO Active polyethylene glycol 3350 (MIRALAX) powder Mix the entire bottle with 64 oz of a clear liquid. Use as directed by the office for colonoscopy prep. 6 Active tiZANidine (ZANAFLEX) 2 MG capsule Active Immunizations Immunization Administration Dates Next Due FLU VACCINE QUAD IIV4 PF ID 03/02/2016 INFLUENZA VACCINE, HIGH-DOSE , QUADR. (FLUZONE HIGH-DOSE QUADRIVALENT; 65Y+), 0.7 ML (HD-IIV4) 03/07/2017 Social History Tobacco Use Types Packs/Day Years Used Date Smoking Tobacco: Never Comments Unknown Sex and Gender Information Value Date Recorded Sex Assigned at Not on file Legal Sex Female 4:06 PM CDT Gender Identity Not on file Sexual Orientation Not on file Last Filed Vital Signs Vital Sign Reading Time Taken Comments Blood Pressure 128/80 06/10/2016 11:00 AM POSTING CLERK Pulse 73 06/10/2016 11:00 AM POSTING CLERK Temperature 36.9 C (98.5 F) 06/10/2016 11:00 AM POSTING CLERK Respiratory Rate 16 06/10/2016 11:00 AM POSTING CLERK Oxygen Saturation 98% 06/10/2016 11:00 AM POSTING CLERK Inhaled Oxygen Concentration - - Weight 63.5 kg (140 lb) 06/10/2016 11:00 AM POSTING CLERK Height 168.9 cm (5' 6.5) 06/10/2016 11:00 AM CS T Body Mass Index 22.26 06/10/2016 11:00 AM POSTING CLERK Plan of Treatment Health Maintenance Due Date Last Done Comments BONE DENSITY TESTING 1950 COLOGUARD (AGES 45-75) - COL ON CA SCREENING 1951 COLON MONITORING 1951 COLONOSCOPY - COLON CA SCREENING 1951 CT COLONOGRAPHY - COLON CA SCREENING 1950 Colorectal Cancer Screening 1950 FIT - COLON CA SCREENING 1951 FLEX SIG - COLON CA SCREENING 1951 LIPID TESTING 1950 MAMMOGRAM 1950 HEPATITIS C SCREENING 06/12/1969 DTAP/TDAP/TD VACCINES (1 - Tdap) 1970 PNEUMOCOCCAL VACCINE 50+ (1 of 1 - PCV) 2001 ZOSTER VACCINE (1 of 2) 2001 DEPRESSION SCREENING 05/28/2024 COVID-19 VACCINE (1 - 2023-2 5 season) 2025 INFLUENZA VACCINE (#1) 2025 7, 03/02/2016 Respiratory Syncytial Virus (RSV) Vaccine Pt: or over 60 yrs (1 - 1-dose 75+ series) 2026 HEPATITIS B VACCINE Aged Out No longe r eligible based on patient's age to complete this topic HIB VACCINE Aged Out No longer eligi ble based on patient's age to complete this topic HPV VACCINE Aged Out No longer eligi ble based on patient's age to complete this topic MENINGOCOCCAL (Group B) VACCINE SHARED DECISION-MAKING Aged Out No longer eligible based on patient's age to complete this topic MENINGOCOCCAL GROUPS A/C/Y/W VACCINE Aged Out No longer eligible b ased on patient's age to complete this topic Insurance UHC MANAGED MEDICARE [facility]V [facility] MEDICARE MEDICARE Care Teams Blade Filer Relationship Specialty Start Date End Date Jasper Bautista MD [address] [address] PCP - General 05/16/18
--- OUTSIDE RECORDS SUMMARY | 2025-03-19 16:42 | XMS_ITS | Encounter Summary ---
Author Organization [facility] Address [address] [place] [address] Care Team Providers Care Hvac Sales Engineer Name Role Phone Jasper Bautista MD Primary Care Provider + Encounter Details Date Type Department Care Team (Late st Contact Info) Description 05/16/2018 Lab Requisition [facility] [address] [place] [id number] Ferny Vigil MD [address] [place] [address] Social History Tobacco Use Types Packs/Day Years Used Date Smoking Tobacco: Never Comments Unknown Sex and Gender Information Value Date Recorded Sex Assigned at Not on file Legal Sex Female 4:06 PM CDT Gender Identity Not on file Sexual Orientation Not on file documented as of this encounter Plan of Treatment Not on file documented as of this encounter Procedures Procedure Name Priority Date/Time Associated Diagnosis Comments DERMATOPATHOLOGY Routine 05/15/2018 12:0 0 AM CONSERVATION AGENT documented in this encounter Results * DERMATOPATHOLOGY (05/15/2018 12:00 AM CONSERVATION AGENT) Case Report Dermatopathology Report Case: [id number] Authorizing Provider: Ferny Vigil MD Collected: 05/15/2018 12:00 AM Pathologist: Carleen Wright MD Received: 05/16/2018 12:41 PM Specimens: A) - Skin, right med cheek B) - Skin, left prox ant thigh 12/21/201 8 11:54 AM [facility] Final Diagnosis Specimen A. SKIN, right med cheek: COMPOUND MELANOCYTIC NEVUS (D22.39) Specimen B. SKIN, left prox ant thigh: LICHEN PLANUS-LIKE KERATOSIS (BENIGN LICHENOID KERATOSIS) (L82.1) 11:54 AM [facility]ERMAT[facility]ATH[facility] at [address] CONSERVATION AGENT Clinical History A: R/O Nevus vs SK. B: R/O AK vs lentigo vs SK. 11:54 AM [facility] Gross Description Specimen A: Received is one formalin filled container labeled with the patient's name and designated right med cheek. The specimen consists of a shave biopsy measuring [id number]. Jar 0. Specimen B: Received is one formalin filled container labeled with the patient's name and designated left prox ant thigh. The specimen consists of a shave biopsy (2 pieces) measuring [id number] & [id number]. Jar 0. 11:54 AM [facility] Microscopic Description Specimen A. SKIN, right med cheek: There are nests of melanocytes at the dermal-epidermal junction and within the dermis. Specimen B. SKIN, left prox ant thigh: The epidermis is mildly acanthotic. There is a lichenoid infiltrate with vacuolar changes of basilar keratinocytes and scattered necrotic keratinocytes. There is abundant melanin within melanophages around the superficial vascular plexus. 11:54 AM [facility] Disclaimer An external and internal positive and negative controls are appropriate for the histochemical, immunohistochemical and immunofluorescence stain(s) in this case (if any), except where stated explicitly. The performance characteristics of the stain(s) cited in this report were developed and its performance characteristic determined by the Dermatopathology Laboratory at [facility]. These tests need not be, and therefore are not, approved by the [place] Food and Drug Administration. The tests are used for clinical purposes. Billing Codes Specimen Charges Stain Charges 20003 08846 1 1 11:54 AM [facility] Embedded Images 11:54 AM [facility] Pathology/Cytology TISSUE SPECIMEN FROM SKIN / Unknown 05/15/2018 05/16/2018 12:41 PM CONSERVATION AGENT Miscellaneous samples (specimen) TISSUE SPECIMEN FROM SKIN / Unknown 05/15/2018 05/16/2018 12:41 PM CONSERVATION AGENT Ferny Vigil MD LAB - PATHOLOGY/CYTOLOGY ORD ERABLES Final Result DERMATOPATHOLOGY LABORATORY [facility] - Department of Dermatology [address] [place] [address] 5[address] Floor Lab [address] [phone] documented in this encounter Visit Diagnoses Not on filedocumented in this encounter Care Teams Hvac Sales Engineer Relationship Specialty Start Date End Date Jasper Bautista MD [address] [place] [id number] PCP - General 05/16/18 documented as of this encounter
[2025-03-19 17:08] VITALS: BP 167/85; PULSE 77; RESP 15; O2SAT 99
[2025-03-19] MEDS: ACETAMINOPHEN/CODEINE (*CRX) 300/30 MG TABLET 1 TAB PO (17:21)
[2025-03-19] MEDS: KETOROLAC 15 MG/ML VIAL (*BKC) IV PUSH (17:54)
[2025-03-19] MEDS: MORPHINE SULFATE (*CRX) 4 MG/ML INJ 2 MG IV PUSH (17:57)
--- NOTE | 2025-03-19 17:59 | ED.ABDPAIN ---
HPI - Abdominal Pain General Chief Complaint: Abdominal Pain Stated Complaint: abd pain Time Seen by Provider: 03/19/25 15:54 Source: patient Mode of arrival: ambulatory Limitations: no limitations History of Present Illness HPI narrative: 74-year-old with a history of hypertension, hyperlipidemia, chronic constipation presents to the ER with a complains of severe abdominal pain with started this morning. She complains of nausea but no vomiting. Denies any fever or chills. MD elicited complaint: abdominal pain Pertinent past history: constipation Onset (ago): day(s) (1) Pain Consistency: constant Location: diffuse Severity: moderate Quality: aching Radiation: none Migration to: no migration Exacerbating factors: nothing Relieving factors: nothing Associated symptoms: denies other symptoms Related Data Home Medications ?Medication ?Instructions ?Recorded ?Confirmed ?Last Taken ?Type Lactobacills gasseri-Bifidobac 1 cap PO DAILY 04/21/19 03/17/25 03/02/20 History bifidum,longum 1.5 billion cell capsule ([employer]) acetaminophen 300 mg-codeine 30 mg 1 tablet PO Q12H PRN Pain 04/21/19 03/17/25 03/02/20 History tablet (Tylenol-Codeine #3) glucosamine sulf dipotassium Cl 1 tablet PO DAILY 04/21/19 03/17/25 03/02/20 History 750 mg-chondroitin sulf 600 mg tablet (Glucosamine-Chondroitin 3X Triple Strength) meloxicam 15 mg tablet 15 mg PO DAILY 04/21/19 03/17/25 03/02/20 History multivitamin 1 tablet PO DAILY 04/21/19 03/17/25 03/02/20 History polyethylene glycol 3350 17 17 gm PO DAILY PRN Constipation 04/21/19 03/17/25 03/02/20 History gram/dose oral powder (Miralax) tizanidine 4 mg capsule 4 mg PO TID PRN Muscle Spasm 04/21/19 03/17/25 03/02/20 History onabotulinumtoxinA [Botox] IM 03/30/20 03/17/25 Unknown History cholecalciferol (vitamin D3) 50 50 mcg PO DAILY 02/01/21 03/17/25 Unknown History mcg (2,000 unit) capsule magnesium 250 mg tablet 250 mg PO DAILY 02/01/21 03/17/25 Unknown History mecobalamin (vitamin B12) 1,000 2,000 mcg sublingual DAILY 02/01/21 03/17/25 Unknown History mcg disintegrating tablet,sublingual calcium carbonate 600 mg PO DAILY 08/02/21 03/17/25 Unknown History famotidine 40 mg tablet 40 mg PO QHS 09/18/24 03/17/25 Unknown History gabapentin 100 mg capsule 100 mg PO DAILY 09/18/24 03/17/25 Unknown History Allergies Allergy/AdvReac Type Severity Reaction Status Date / Time aspirin Allergy Unknown Hives Verified 03/19/25 15:59 orphenadrine Allergy Unknown Rash Uncoded 03/17/25 09:48 Review of Systems Review of Systems: All systems reviewed & are unremarkable except as noted in HPI and below Constitutional: Constitutional: Reports no additional constitutional complaints Eyes: Eyes: Reports no additional eye complaints ENT: Reports system reviewed and no additional complaints, except as documented Cardiovascular: Cardiovascular: Reports no additional cardiovascular complaints Respiratory: Respiratory: Reports no additional respiratory complaints Gastrointestinal: Gastrointestinal: Reports as per HPI Musculoskeletal: Musculoskeletal: Reports no additional musculoskeletal complaints Neurologic: Reports system reviewed and no additional complaints, except as documented Psychiatric: Psychiatric: Reports no additional psychiatric complaints [facility] Past Medical History Medical History Vitamin D deficiency Degenerative arthritis of left knee Knee effusion, right Arthritis of knee, degenerative Lisfranc's sprain Arthritis Urinary frequency Ear pain History of colon polyps Spinal stenosis Osteoarthritis Depression Osteoporosis Chronic constipation HTN (hypertension), benign Surgical History Surgical History Status post hernia repair Status post foot surgery History of sinus surgery Family History Family History Father Acute myocardial infarction Mother Uterine cancer Social History Social History Smoking status: Never smoker Second hand tobacco smoke exposure: No Alcohol intake: current Drinks per week: 1 Alcohol use details: rare Substance use: never Substance use type: does not use Do You Feel Safe in your Home?: Yes Lack of Transportation: No Lack of Food: Never True Current Housing: I Have Housing Concerned About Future Housing: No Difficulty Paying Gas/Electric Bills: No Difficulty Paying for Meds: No Currently Unemployed: YES Education: Don't Know Difficulty w/ Childcare or Family Care: No Living arrangements: with family Occupation/Education: retired Gender identity (if verbalized by the patient): Female Sexual Orientation (if Verbalized by the Patient): Straight or Heterosexual Spiritual care concerns: No Exam Narrative: GENERAL: Well-appearing, well-nourished, extremely anxious HEAD: Normocephalic, atraumatic. EYES: PERRLA and EOMI. ENT: Nares clear, no rhinorrhea or epistaxis. Mucous membranes moist. NECK: Supple. CHEST: Clear to auscultation. No respiratory distress. HEART: Regular rate and rhythm. No murmur heard. Normal peripheral pulses. ABDOMEN: Soft, diffuse tenderness , nondistended, normal active bowel sounds. EXTREMITIES: Normal range of motion. No edema. SKIN: Warm, dry, no rash. NEURO: No focal deficits. Alert and oriented x3. PSYCH: Normal mood and affect. Course Course Emergency Course: Patient declined any opiates she wants Tylenol No. 3 to be given right away I did inform her that until I get the CT scan I will not be able to give any oral medication. Informed about the lab work, CT findings. She is still in moderate amount of pain but declined any pain medication wants something to eat or pain I finally did tolerate I have only few choices and that I could give her is the ER and she finally agreed to take IV morphine. Her sister was at bedside is overly concerned about what medication we give were. Advised her to take Bentyl for pain control. Follow with the primary doctor Vital Signs Vital signs: Vital Signs Temperature 36.4 C 03/19/25 15:54 Pulse Rate 79 03/19/25 15:54 Respiratory Rate 18 03/19/25 15:54 Blood Pressure 156/88 H 03/19/25 15:54 Pulse Oximetry 99 03/19/25 15:54 Oxygen Delivery Room Air 03/19/25 15:54 Temperature 36.4 C 03/19/25 15:54 Pulse Rate 77 03/19/25 17:08 Respiratory Rate 15 03/19/25 17:08 Blood Pressure 167/85 H 03/19/25 17:08 Pulse Oximetry 99 03/19/25 17:08 Oxygen Delivery Room Air 03/19/25 15:54 MDM - Abdominal Pain Differential Diagnosis Differential diagnosis: Likely abdominal pain, constipation, diverticulitis, gastroenteritis and pancreatitis Medical Records Attestation: I reviewed the patient's medical records. Lab Data Attestation: I reviewed the patient's lab results. 03/19/25 16:11 03/19/25 16:24 Labs: Lab Results 03/19/25 03/19/25 03/19/25 Range/Units 16:11 16:24 17:51 WBC 11.6 H (4.5-10.0) K/mm3 RBC 4.70 (4.2-5.4) M/mm3 Hgb 14.9 (12.0-15.0) g/dL Hct 44.2 (37.0-47.0) % MCV 94.0 (80-100) fl MCH 31.7 (26-34) pg MCHC 33.7 (32-36) g/dl RDW 12.8 (11.5-14.5) % Plt Count 273 (150-375) k/mm3 MPV 9.0 (7.4-10.4) fl Immature Gran % (Auto) 0.3 (0-0.5) % Neut % (Auto) 93.3 H (45.5-73.1) % Lymph % (Auto) 4.2 L (18.3-44.2) % [place] % (Auto) 2.0 L (2.6-8.5) % Eos % (Auto) 0.0 (0-4.4) % Baso % (Auto) 0.2 (0.2-1.2) % Lymph # (Auto) 0.49 L (0.9-3.2) K/mm3 [place] # (Auto) 0.2 (0.1-0.6) K/mm3 Eos # (Auto) 0.0 (0-0.3) K/mm3 Baso # (Auto) 0.0 (0.0-0.1) K/mm3 Abs Immat Gran (auto) 0.03 (0.00-0.031) K/mm3 Absolute Neuts (auto) 10.8 H (1.3-6.7) K/mm3 Absolute Nucleated RBC 0.000 (0.0-0.012) K/mm3 Nucleated RBC % 0.0 (0.0-0.2) % PT 12.4 (11.1-14.7) Seconds INR 0.9 Sodium 138 (137-145) mmol/L Potassium 4.5 (3.4-5.0) mmol/L Chloride 103 (98-107) mmol/L Carbon Dioxide 25 (22-30) mmol/L Anion Gap 10 (4-12) mmol/L BUN 21 H (7-17) mg/dL Creatinine 0.59 L 0.50 L (0.7-1.0) mg/dL Estim Creat Clear Calc 65 75 ml/min Estimated GFR > 60 > 60 (59 - ) Glucose 145 H (65-110) mg/dL Lactic Acid 3.9 H (0.7-2.0) mmol/L Calcium 10.6 H (8.4-10.2) mg/dL Total Bilirubin 0.9 (0.2-1.3) mg/dL AST 47 H (14-36) U/L ALT 37 H (6-35) U/L Alkaline Phosphatase 80 (38-126) U/L Total Protein 7.6 (6.3-8.2) g/dL Albumin 4.6 (3.5-5.1) g/dL Lipase 40 (23-300) U/L Urine Color Pending Urine Appearance Pending Urine pH Pending Ur Specific [place] Pending Urine Protein Pending Urine Glucose (UA) Pending Urine Ketones Pending Ur Blood (Man) Pending Urine Nitrate Pending Urine Bilirubin Pending Urine Urobilinogen Pending Leukocyte Esterase Rfl Pending Imaging Data Radiologist's impression: ITS Impressions Abdomen/Pelvis CT 03/19/25 16:57 IMPRESSION: 1. Nonspecific fluid throughout nondilated small bowel which could be seen in the setting of an enteritis. 2. Small amount of scattered ascites in the abdomen and pelvis. 3. 3 mm nonobstructing stone at the lower pole the left kidney with mild right-sided and moderate left-sided hydronephrosis with transition points at the ureteropelvic junctions which are without obstructing stones or masses. 4. Small sliding-type hiatal hernia. 5. Cardiomegaly. Discharge Plan Discharge Clinical Impression: Abdominal pain Qualifiers: Abdominal location: generalized Qualified Code(s): R10.84 - Generalized abdominal pain Patient Disposition: Home Condition: Stable Instructions: Abdominal Pain (ED) Additional Instructions: Continue home medication, follow-up with your primary doctor can take Bentyl as needed otherwise you could continue with the Tylenol 3 for pain as needed Patient Language: Vincentian Prescriptions: New dicyclomine 10 mg capsule 10 mg PO TID Qty: 20 0RF No Action onabotulinumtoxinA [Botox] IM calcium carbonate 600 mg calcium (1,500 mg) tablet 600 mg PO DAILY acetaminophen-codeine [Tylenol-Codeine #3] 300-30 mg tablet 1 tablet PO Q12H PRN (Reason: Pain) meloxicam 15 mg tablet 15 mg PO DAILY tizanidine 4 mg capsule 4 mg PO TID PRN (Reason: Muscle Spasm) glucosamine torres 2KCl-chondroit [Glucosamine-Chondroitin 3X Str] 750-600 mg tablet 1 tablet PO DAILY multivitamin Tablet 1 tablet PO DAILY [employer] 1.5 billion cell capsule 1 cap PO DAILY polyethylene glycol 3350 [Miralax] 17 gram/dose powder 17 gm PO DAILY PRN (Reason: Constipation) magnesium 250 mg tablet 250 mg PO DAILY cholecalciferol (vitamin D3) 50 mcg (2,000 unit) capsule 50 mcg PO DAILY mecobalamin (vitamin B12) 1,000 mcg tablet,disintegrating 2,000 mcg sublingual DAILY Rx Instructions: place tablet under tongue and allow to dissolve for at least30 secs before swallowing famotidine 40 mg tablet 40 mg PO QHS gabapentin 100 mg capsule 100 mg PO DAILY escitalopram oxalate 10 mg tablet See Rx Instructions .ROUTE .COMPLEX Qty: 90 3RF Dose Instruction: TAKE 1 TABLET BY MOUTH DAILY Rx Instructions: TAKE 1 TABLET BY MOUTH DAILY lisinopril 10 mg tablet 10 mg PO DAILY Qty: 90 3RF atorvastatin 20 mg tablet See Rx Instructions .ROUTE .COMPLEX Qty: 90 3RF Dose Instruction: TAKE 1 TABLET BY MOUTH DAILY AT BEDTIME Rx Instructions: TAKE 1 TABLET BY MOUTH DAILY AT BEDTIME nystatin 100,000 unit/gram cream 1 applic topical DAILY Qty: 15 0RF mometasone 0.1 % cream 1 applic topical DAILY Qty: 15 0RF Follow-up/Referrals: Sim Weiss MD [Primary Care Provider, Family Practice] Time of Disposition: 18:08
[2025-03-19 18:03] VITALS: BP 183/89; PULSE 84; RESP 20; O2SAT 100
[2025-03-19 18:30] LABS: Add Urine Microscopic? YES; Appearance Urine Clear (Clear); Glucose Urine UA Negative (Negative); Leukocyte Esterase Ur Trace LEU/UL (Negative); Nitrate Urine Negative (Negative); Non Pathogenic Casts 0-2; Specific Grav Ur 1.034 (1.001-1.035)
== END 2025-03-19 18:20 | disposition home or self-care (01) ==
PROVIDERS: Emergency Provider Family Medicine; PCP Family Medicine
DX: R10.84 Generalized abdominal pain (principal); E78.5 Hyperlipidemia, unspecified; K59.09 Other constipation; E55.9 Vitamin D deficiency, unspecified; M81.0 Age-related osteoporosis without current pathological fracture
CPT/HCPCS: 36415; 74177; 80053; 81001; 83605; 83690; 85025; 85610; 93005; 96361; 96374; 96375; 96376; 99284; A9270; J1885; J2270; J2405; J7030; Q9967